=== PATIENT | female | born 1955 | race Caucasian/White ===

== ENCOUNTER 2019-08-26 12:34 | Outpatient (CLI) | payer MEDICARE, OTHER, SELFPAY ==
--- NOTE | ~2019-08-26 | XR_ITS ---
EXAMINATION: XR chest 2V DATE: 08/26/2019 13:00 INDICATION: Upper respiratory infection. TECHNIQUE: Frontal and lateral views of the chest were obtained. COMPARISON: Chest 2 views 08/15/2018, chest CT 09/08/2014 FINDINGS: The chest demonstrates clear lungs without pneumonia, pleural effusion, or pneumothorax. Th e heart size is normal. IMPRESSION: 1. No acute cardiopulmonary disease. Reviewed, dictated and finalized at location A. 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
[2019-08-26 12:50] LABS: Basophils Absolute Auto 0.04 K/mm3 (0.00-0.10); Basophils Percent Auto 0.5 % (0.0-1.0); Eosinophils Absolute Auto 0.17 K/mm3 (0.02-0.50); Eosinophils Percent Auto 2.1 % (1.0-6.0); Hematocrit 44.7 % (35.0-42.0); Hemoglobin 14.2 g/dL (11.7-13.8); Immature Granulocyte Absolute 0.03 K/mm3 (0.00-0.00); Immature Granulocyte Percent A 0.4 % (0.0-0.0); Lymphocytes Absolute Auto 2.68 K/mm3 (1.10-4.50); Lymphocytes Percent Auto 32.9 % (18.0-42.0); Mean Corpuscular HGB Conc 31.8 g/dL (32.0-36.0); Mean Corpuscular Hemoglobin 28.9 pg (27.0-31.0); Mean Corpuscular Volume 90.9 fL (78.0-102.0); Mean Platelet Volume 9.7 fl (9.2-11.8); Monocytes Absolute Auto 0.48 K/mm3 (0.10-0.90); Monocytes Percent Auto 5.9 % (2.0-11.0); Neutrophils Absolute Auto 4.7 K/mm3 (1.7-7.2); Neutrophils Percent Auto 58.2 % (50.0-70.0); Platelet Count Result 266 K/mm3 (150-420); Red Blood Count 4.92 M/mm3 (4.20-5.40); Red Cell Distribution Width 13.1 % (11.6-14.4); White Blood Count 8.1 K/mm3 (4.8-10.8)
[2019-08-26 12:51] LABS: Add Urine Microscopic? NO; Appearance Urine Clear (Clear); Bilirubin Urine Negative (Negative); Blood Urine Negative (Negative); Color Urine Yellow (Yellow); Glucose Urine UA Negative (Negative); Ketones Urine Negative (Negative); Leukocyte Esterase Ur Negative (Negative); Nitrate Urine Negative (Negative); Protein Urine Negative (Negative); Specific Grav Ur <= 1.005 (1.010-1.020); Urobilinogen Urine 0.2 mg/dL (0.2-1.0); pH Urine 6.5 (5.0-8.0)
[2019-08-26 13:05] LABS: Alanine Aminotransferase 20 U/L (14-59); Albumin Level 3.6 g/dL (3.4-5.0); Alkaline Phosphatase 101 U/L (46-116); Anion Gap 11.8 mmol/L (7-16); Aspartate Amino Transferase 15 U/L (15-37); Bilirubin,Total 0.4 mg/dL (0.00-1.00); Blood Urea Nitrogen 8 mg/dL (7-18); Calcium 9.1 mg/dL (8.5-10.1); Carbon Dioxide 30 mmol/L (21-32); Chloride 106 mmol/L (98-108); Estimated Glomerular Filt Rate > 60; Glucose 186 mg/dL (70-99); Osmolality Calculated 301 mOsm/kg (285-295); Potassium 3.8 mmol/L (3.5-5.1); Sodium 144 mmol/L (136-145); Total Protein 7.6 g/dL (6.4-8.2)
[2019-08-26 13:07] LABS: Influenza Control Valid (Valid)
[2019-08-26 15:22] LABS: Hemoglobin A1C 7.4 % (<5.7)
== END 2019-08-26 12:35 | disposition home or self-care (01) ==
LOC: CHSLAB 12:36
PROVIDERS: PCP Internal Medicine; Visit Provider Nurse Practitioner Family
DX: N39.0 Urinary tract infection, site not specified (principal); J06.9 Acute upper respiratory infection, unspecified; R73.9 Hyperglycemia, unspecified
CPT/HCPCS: 36415; 71046; 80053; 81003; 83036; 85025; 87086; 87088; 87804

== ENCOUNTER 2019-11-19 08:53 | Outpatient (CLI) | payer MEDICARE, SELFPAY ==
[2019-11-19 11:02] LABS: Alanine Aminotransferase 26 U/L (14-59); Aspartate Amino Transferase 19 U/L (15-37); Cholesterol 137 mg/dL (0-200); HDL Direct 30 mg/dL (40-60); LDL Cholesterol Calculated 74 mg/dL (<130); Triglycerides 165 mg/dL (0-150)
== END 2019-11-19 08:54 | disposition home or self-care (01) ==
LOC: CHSLAB 08:57
PROVIDERS: PCP Internal Medicine; Visit Provider Internal Medicine Cardiovascular Disease
DX: E78.5 Hyperlipidemia, unspecified (principal); Z79.899 Other long term (current) drug therapy
CPT/HCPCS: 36415; 80061; 84450; 84460

== ENCOUNTER 2019-11-28 08:01 | Outpatient (CLI) | payer MEDICARE, SELFPAY ==
[2019-11-28 08:53] LABS: Alanine Aminotransferase 21 U/L (14-59); Albumin Level 3.8 g/dL (3.4-5.0); Alkaline Phosphatase 118 U/L (46-116); Anion Gap 14.1 mmol/L (7-16); Aspartate Amino Transferase 20 U/L (15-37); Bilirubin,Total 0.5 mg/dL (0.00-1.00); Blood Urea Nitrogen 8 mg/dL (7-18); Calcium 9.5 mg/dL (8.5-10.1); Carbon Dioxide 29 mmol/L (21-32); Chloride 105 mmol/L (98-108); Cholesterol 144 mg/dL (0-200); Estimated Glomerular Filt Rate > 60; Glucose 132 mg/dL (70-99); HDL Direct 32 mg/dL (40-60); LDL Cholesterol Calculated 77 mg/dL (<130); Osmolality Calculated 298 mOsm/kg (285-295); Potassium 4.1 mmol/L (3.5-5.1); Sodium 144 mmol/L (136-145); Total Protein 7.2 g/dL (6.4-8.2); Triglycerides 173 mg/dL (0-150)
[2019-11-28 08:58] LABS: CRP < 0.2 mg/dL (0.0-0.9)
== END 2019-11-28 08:02 | disposition home or self-care (01) ==
LOC: CHSLAB 08:03
PROVIDERS: PCP Internal Medicine; Visit Provider Internal Medicine
DX: E78.5 Hyperlipidemia, unspecified (principal); E11.9 Type 2 diabetes mellitus without complications; M06.9 Rheumatoid arthritis, unspecified
CPT/HCPCS: 36415; 80053; 80061; 86140

== ENCOUNTER 2020-02-25 11:23 | Outpatient (CLI) | payer MEDICARE, OTHER, SELFPAY ==
--- NOTE | ~2020-02-25 | XR_ITS ---
XR foot LT min 3V DATE: 02/25/2020 11:46 INDICATION: Left ankle and foot pain, swelling. History of multiple fractures. TECHNIQUE: 4 views COMPARISON: None FINDINGS: Tibiotalar osteoarthritis. Ossification is noted in the region of the distal Achilles tendon. Mild plantar calcaneal enthesopath y. There is osteoarthritis at the first metatarsophalangeal joint. There are degenerative changes at the tibiotalar, tarsal and tarsometatarsal joints. No recent fracture, dislocation, periosteal reaction or bone destruction is evident. IMPRESSION: Polyarticular osteoarthritis Reviewed, dictated and finalized at location B.
--- NOTE | ~2020-02-25 | XR_ITS ---
XR ankle LT min 3V DATE: 02/25/2020 11:46 INDICATION: Medial ankle pain and swelling. History of multiple fractures. TECHNIQUE: 4 views COMPARISON: 01/09/2006 left ankle FINDINGS: There is tibiotalar osteoarthritic change. There is mild plantar calcaneal enthesopathy. There are some ossification in the region of the distal Achilles tendon. No recent fracture or dislocation of the ankle or disruption of the ankle mortise is evident. IMPRESSION: No recent fracture or dislocation Osteoarthritis at the tibiotalar joint Calcaneal enthesopathy and ossification in the region of the distal Achilles tendon Reviewed, dictated and finalized at location B. IMPRESSION: No recent fracture or dislocation Osteoarthritis at the tibiotalar joint Calcaneal enthesopathy and ossification in the region of the distal Achilles te ndon
== END 2020-02-25 11:24 | disposition home or self-care (01) ==
LOC: CHSIMG 11:25
PROVIDERS: PCP Internal Medicine; Visit Provider Internal Medicine
DX: M25.572 Pain in left ankle and joints of left foot (principal); M79.672 Pain in left foot
CPT/HCPCS: 73610; 73630

== ENCOUNTER 2020-05-06 07:43 | Outpatient (CLI) | payer MEDICARE, OTHER, SELFPAY ==
--- NOTE | ~2020-05-06 | US_ITS ---
EXAMINATION: US carotid duplex BI DATE: 05/06/2020 08:27 INDICATION: Cerebral vascular accident. TECHNIQUE: Grayscale, color Doppler, and pulsed Doppler images of the cervical carotid arteries were obtained. The degree of vessel stenosis is placed in one of the following categories: normal, <50%, 5 0-69%, >=70% but less than near-occlusion, near-occlusion, or total occlusion. Note that percent sten osis relative to normal distal artery lumen diameter is indirectly measured from velocity measurement s as described by Jamie, et al. Radiology 2003; 229:340-346. COMPARISON: None. FINDINGS: RIGHT: The right common carotid artery (CCA) peak systolic velocity (PSV) is 52 cm/s. The right internal car otid artery (ICA) PSV is 647 cm/s. The right ICA end-diastolic velocity (EDV) is 241 cm/s. The right ICA/CCA PSV ratio is 13. Grayscale and color Doppler images yield an estimate of >=50% diameter reduc tion from plaque in the ICA. There is antegrade flow in the right vertebral artery. LEFT: The left CCA PSV is 66 cm/s. The left ICA PSV is 173 cm/s. The left ICA EDV is 47 cm/s. The left ICA/ CCA PSV ratio is 2.6. Grayscale and color Doppler images yield an estimate of <50% diameter reduction from plaque in the ICA. There is antegrade flow in the left vertebral artery. IMPRESSION: 1. 50-69% stenosis in the right internal carotid artery. 2. <50% stenosis in the left internal carotid artery. Reviewed, dictated and finalized at location A.
== END 2020-05-06 07:44 | disposition home or self-care (01) ==
LOC: CHSIMG 07:44
PROVIDERS: PCP Internal Medicine; Visit Provider Internal Medicine
DX: R42 Dizziness and giddiness (principal); Z86.73 Personal history of transient ischemic attack (TIA), and cerebral infarction without residual deficits
CPT/HCPCS: 93880

== ENCOUNTER 2020-09-24 08:23 | Outpatient (CLI) | payer MEDICARE, OTHER, SELFPAY ==
--- NOTE | ~2020-09-24 | XR_ITS ---
EXAMINATION: XR sinus min 3V EXAM DATE: 09/24/2020 09:21 INDICATION: Recurrent sinus infection. TECHNIQUE: Frontal, Jarek's, Castañeda, lateral, submentovertex projections of the paranasal sinuses. C omparison is made to prior examination from 07/28/2013. FINDINGS: There is some increased density along the lateral and inferior aspects of the maxillary sin uses. No sinus air-fluid levels on the submentovertex projection. Orbits and soft tissues are unremar kable. Appearance not significantly changed compared to 2013. IMPRESSION: Probable mild to moderate bilateral maxillary mucoperiosteal thickening. Reviewed, dictated and finalized at location A. E PULLER IMPRESSION: Probable mild to moderate bilateral maxillary mucoperiosteal thick ening.
== END 2020-09-24 08:24 | disposition home or self-care (01) ==
LOC: CHSLAB 08:25
PROVIDERS: PCP Internal Medicine; Visit Provider Nurse Practitioner Family
DX: J32.9 Chronic sinusitis, unspecified (principal)
CPT/HCPCS: 70220

== ENCOUNTER 2021-02-03 14:48 | Outpatient (CLI) | payer MEDICARE, OTHER, SELFPAY ==
--- NOTE | ~2021-02-03 | CT_ITS ---
EXAMINATION: CTA chest PE protocol EXAM DATE: 02/03/2021 16:34 INDICATION: Right sided chest pain with SOB x 2days . TECHNIQUE: Spiral CTA of the chest (pulmonary arteries) was performed with 100 cc Omnipaque 350 intr avenous contrast injection. Images were acquired during the pulmonary arterial phase. Coronal maxi mum intensity projection 3D-reconstructions were created by the technologist on dedicated workstation . Axial, coronal and sagittal reformatted images were reviewed. The dose-length product (DLP) for t his examination was 506.40 mGy-cm. The exposure was tailored according to patient size (auto mA exp osure control), and iterative reconstruction (ASIR) was used as additional dose reduction technique. Comparison is made to prior examination from 2015. FINDINGS: Pulmonary arteries are well opacified and without intraluminal filling defects. There is a n aberrant right subclavian artery, which is a normal anatomic variant. Mildly enlarged right hilar l ymph node, probably unchanged and reactive. No thoracic aortic dissection. Again there are several nodules which are noncalcified measuring up to 8 there is mild to moderate emphysema. Mm in size, non calcified granulomas unchanged. There are no pleural or pericardial effusions. Tracheobronchial tr ee is patent. There is no pneumothorax. Heart normal in size. There is moderate coronary arteri al calcification, arterial sclerosis. Upper abdomen is unremarkable. There is moderate thoracic sp ondylosis without osteoblastic or osteolytic lesions identified. IMPRESSION: 1. No pulmonary emboli or acute cardiopulmonary findings. 2. Mild to moderate emphysema. 3. Noncalcified granulomata unchanged. Reviewed, dictated and finalized at location G.
[2021-02-03 15:27] LABS: Basophils Absolute Auto 0.04 K/mm3 (0.00-0.10); Basophils Percent Auto 0.5 % (0.0-1.0); Eosinophils Absolute Auto 0.18 K/mm3 (0.02-0.50); Eosinophils Percent Auto 2.1 % (1.0-6.0); Hematocrit 47.8 % (35.0-42.0); Hemoglobin 15.6 g/dL (11.7-13.8); Immature Granulocyte Absolute 0.04 K/mm3 (0.00-0.00); Immature Granulocyte Percent A 0.5 % (0.0-0.0); Lymphocytes Percent Auto 34.2 % (18.0-42.0); Mean Corpuscular HGB Conc 32.6 g/dL (32.0-36.0); Mean Corpuscular Hemoglobin 29.2 pg (27.0-31.0); Mean Corpuscular Volume 89.5 fL (78.0-102.0); Mean Platelet Volume 10.1 fl (9.2-11.8); Monocytes Absolute Auto 0.57 K/mm3 (0.10-0.90); Monocytes Percent Auto 6.5 % (2.0-11.0); Neutrophils Absolute Auto 4.9 K/mm3 (1.7-7.2); Neutrophils Percent Auto 56.2 % (50.0-70.0); Platelet Count Result 274 K/mm3 (150-420); Red Blood Count 5.34 M/mm3 (4.20-5.40); Red Cell Distribution Width 13.5 % (11.6-14.4); White Blood Count 8.8 K/mm3 (4.8-10.8)
[2021-02-03 15:28] LABS: Add Urine Microscopic? NO; Appearance Urine Clear (Clear); Bilirubin Urine Negative (Negative); Blood Urine Negative (Negative); Color Urine Light Yellow (Yellow); Glucose Urine UA Negative (Negative); Ketones Urine Negative (Negative); Leukocyte Esterase Ur Negative LEU/UL (Negative); Nitrate Urine Negative (Negative); Protein Urine Negative (Negative); Urobilinogen Urine 0.2 mg/dL (0.2-1.0); pH Urine 6.5 (5.0-8.0)
[2021-02-03 15:52] LABS: Alanine Aminotransferase 24 U/L (14-59); Albumin Level 3.8 g/dL (3.4-5.0); Alkaline Phosphatase 104 U/L (46-116); Anion Gap 11 mmol/L (8-16); Aspartate Amino Transferase 17 U/L (15-37); Bilirubin,Total 0.3 mg/dL (0.00-1.00); Blood Urea Nitrogen 10 mg/dL (7-18); CRP 0.7 mg/dL (0.0-0.9); Calcium 9.6 mg/dL (8.5-10.1); Carbon Dioxide 27 mmol/L (21-32); Chloride 108 mmol/L (98-108); Creatine Kinase 282 U/L (26-192); Estimated Glomerular Filt Rate > 60; Glucose 101 mg/dL (70-99); Osmolality Calculated 301 mOsm/kg (285-295); Potassium 3.9 mmol/L (3.5-5.1); Sodium 146 mmol/L (136-145); Total Protein 7.3 g/dL (6.4-8.2); Troponin I 9.2 ng/L (0.00-60.4)
== END 2021-02-03 14:49 | disposition home or self-care (01) ==
LOC: CHSLAB 14:50
PROVIDERS: PCP Internal Medicine; Visit Provider Nurse Practitioner Family
DX: R07.9 Chest pain, unspecified (principal)
CPT/HCPCS: 36415; 71275; 80053; 81003; 82550; 82553; 84484; 85025; 86140; Q9967

== ENCOUNTER 2021-02-05 13:18 | Emergency (ER) | payer MEDICARE, OTHER, SELFPAY ==
--- NOTE | ~2021-02-05 | CT_ITS ---
EXAMINATION: CTA chest PE protocol DATE: 02/05/2021 15:25 INDICATION: Midsternal chest pain. TECHNIQUE: Computed tomography (CT) pulmonary angiogram of the chest was performed with 100 mL Omnipa que-350 intravenous contrast. Additional 3D reconstructions utilizing coronal maximum intensity proje ction (MIP) were performed. Automated exposure control and iterative reconstruction technique were em ployed. The dose-length product was 507.95 mGy-cm. COMPARISON: CT studies dated 02/03/2021 and 09/08/2014 FINDINGS: Excellent contrast opacification of the pulmonary arteries. There is moderate streak artifact from de nse contrast in the superior vena cava and right atrium. Minimal scattered respiratory motion artifac t which does not significantly limit evaluation. No pulmonary embolism. Mild emphysema. 7 mm left low er lobe nodule, 6 mm nodule in the anterior segment right upper lobe and a couple 2-3 mm nodules in t he right lower lobe, all unchanged since 09/08/2014 consistent with noncalcified granulomata. Also unc hanged is an 8 mm intrafissural lymph node along the right minor fissure. No pneumonia, pulmonary joby ma, pleural effusion or pneumothorax. Heart size is normal. Atherosclerotic coronary artery calcifica tion. No pericardial effusion. Thoracic aorta is normal in caliber with no dissection. Anatomic varia nt retroesophageal aberrant right subclavian artery. No pathologically enlarged thoracic lymphadenopa thy. Utilized upper abdomen is unremarkable. Moderate thoracic spondylosis with bridging osteophytes at multiple levels consistent with diffuse idiopathic skeletal hyperostosis (DISH). IMPRESSION: 1. No pulmonary embolism or other acute cardiopulmonary disease. 2. Mild emphysema. Reviewed, dictated and finalized at location A.
--- NOTE | ~2021-02-05 | XR_ITS ---
EXAMINATION: XR chest 2V DATE: 02/05/2021 13:51 INDICATION: Midsternal chest pressure TECHNIQUE: PA and lateral views of the chest are obtained. COMPARISON: 08/26/[address] dated 02/03/2021 FINDINGS: The lungs are free of acute opacities. There is no pleural effusion or pneumothorax. The ca rdiomediastinal silhouette is normal. There is moderate thoracic spondylosis. IMPRESSION: 1. No acute cardiopulmonary abnormality. Reviewed, dictated and finalized at location A.
--- NOTE | 2021-02-05 13:29 | ECG_ITS ---
Measurements Intervals [place] Rate: 55 P: 59 MA: 146 QRS: -1 QRSD: 98 T: 24 QT: 414 QTc: 398 Interpretive Statements SINUS BRADYCARDIA BASELINE WANDER- I, II, III, AVR, AVL, AVF, V1-V2, V5-V6 BORDERLINE ECG Electronically Signed On 02-05-2021 20:48:13 CDT by Noman Edmondson D.O.
[2021-02-05 13:46] VITALS: BP 209/84; PULSE 54; RESP 16; TEMP 36.4; O2SAT 97
[2021-02-05 13:47] VITALS: PULSE 54
--- NOTE | 2021-02-05 13:48 | ED.CHESTPAIN ---
HPI - Chest Pain General Chief Complaint: Chest Pain Stated Complaint: tightness in chest Time Seen by Provider: 02/05/21 13:40 Source: patient Mode of arrival: ambulatory Limitations: no limitations History of Present Illness HPI narrative: Patient comes in with complaints of pain in her right shoulder, and chest pain, in the low chest / epigastric area. This has been going on for days, and is associated with some sensation she cant catch her breath, or is having difficulty breathing. This is at least causing her moderately severe discomfort, which is a dull discomfort, that has been ongoing for days. She admits having esophageal problems in the past, and evidently does not always chew food well due to poor teeth. She denies feeling something is stuck. Nothing she has done at home has helped her to feel better. MD complaint: chest heaviness and chest discomfort Onset (ago): day(s) Timing of current episode: constant and other (ongoing over days) Prior episodes: Yes Onset: during rest Pain location: epigastric and other (low sternal mostly) Pain radiation: other (some right shoulder discomfort) Severity: moderate Quality: aching, heaviness and dull (ibuprofen in excess has been taken, and has not helped much. Discomfort seems related to meals. ) Exacerbating factors: nothing Associated symptoms: dyspnea Treatment prior to arrival: other (excess ibuprofen) Risk Factors Coronary artery disease risk factors: hyperlipidemia Related Data Home Medications Medication Instructions Recorded Confirmed albuterol sulfate 2 puff INHALATION PRN 02/05/21 02/05/21 rosuvastatin 40 mg PO DAILY 02/05/21 02/05/21 Allergies Allergy/AdvReac Type Severity Reaction Status Date / Time cortisone AdvReac Unknown Verified 02/05/21 14:09 Review of Systems Constitutional: Constitutional: Reports no additional constitutional complaints Eyes: Eyes: Reports no additional eye complaints ENT: Reports system reviewed and no additional complaints, except as documented Cardiovascular: Cardiovascular: Reports no additional cardiovascular complaints Respiratory: Respiratory: Reports no additional respiratory complaints Gastrointestinal: Gastrointestinal: Reports abdominal pain Comments: history of dysphagia in past, Genitourinary: Genitourinary: Reports no additional female genitourinary complaints Musculoskeletal: Comments: right shoulder pain Integumentary/Breasts: Skin/Breast: Reports system reviewed and no additional complaints, except as docu Neurologic: Reports system reviewed and no additional complaints, except as documented Psychiatric: Psychiatric: Reports no additional psychiatric complaints Endocrine: Endocrine: Reports no additional endocrine complaints Hematologic/Lymphatic: Hematologic/Lymphatic: Reports no additional hematologic/lymphatic complaints Allergic/Immunologic: Allergic/Immunologic: Reports no additional allergic/immunologic complaints PMFSH Past Medical History Medical History (Updated 02/05/21 @ 21:49 by Jet Muniz MD) Hyperlipidemia Surgical History Surgical History (Updated 02/05/21 @ 17:00 by Jet Muniz MD) No significant past surgical history Family History Family History Other Family history non-contributory Social History Social History Smoking packs per day: 1 Smoking cigarettes per day: 20.0 Smoking status: Current every day smoker Alcohol intake: never Substance use: never Living arrangements: with family Gender identity (if verbalized by the patient): Female Sexual Orientation (if Verbalized by the Patient): Straight or Heterosexual Exam Const: General: cooperative and healthy appearing Nutritional Appearance: average body habitus and well nourished Orientation/consciousness: oriented to person, oriented to place and oriented to time JESSEMT: Dhruv
[2021-02-05] MEDS: KETOROLAC 30 MG/ML VIAL (*BKC) IV PUSH (14:02)
[2021-02-05 14:04] LABS: Basophils Absolute Auto 0.03 K/mm3 (0.00-0.10); Basophils Percent Auto 0.4 % (0.0-1.0); Eosinophils Absolute Auto 0.19 K/mm3 (0.02-0.50); Eosinophils Percent Auto 2.6 % (1.0-6.0); Hematocrit 48.2 % (35.0-42.0); Hemoglobin 15.6 g/dL (11.7-13.8); Immature Granulocyte Absolute 0.03 K/mm3 (0.00-0.00); Immature Granulocyte Percent A 0.4 % (0.0-0.0); Lymphocytes Absolute Auto 2.15 K/mm3 (1.10-4.50); Lymphocytes Percent Auto 29.8 % (18.0-42.0); Mean Corpuscular HGB Conc 32.4 g/dL (32.0-36.0); Mean Corpuscular Hemoglobin 28.9 pg (27.0-31.0); Mean Corpuscular Volume 89.4 fL (78.0-102.0); Mean Platelet Volume 10.3 fl (9.2-11.8); Monocytes Absolute Auto 0.49 K/mm3 (0.10-0.90); Monocytes Percent Auto 6.8 % (2.0-11.0); Neutrophils Absolute Auto 4.3 K/mm3 (1.7-7.2); Platelet Count Result 250 K/mm3 (150-420); Red Blood Count 5.39 M/mm3 (4.20-5.40); Red Cell Distribution Width 13.3 % (11.6-14.4); White Blood Count 7.2 K/mm3 (4.8-10.8)
--- NOTE | 2021-02-05 14:05 | PC.NURSE ---
ALLERGIES CLARIFIED WITH PT PRIOR TO ADMINISTRATION OF DEXAMETHASONE.
[2021-02-05] MEDS: DEXAMETHASONE SOD PHOS INJ 4 MG/ML VIAL 10 MG IV PUSH (14:08)
[2021-02-05 14:29] LABS: Alanine Aminotransferase 20 U/L (14-59); Albumin Level 3.8 g/dL (3.4-5.0); Alkaline Phosphatase 103 U/L (46-116); Anion Gap 10 mmol/L (8-16); Aspartate Amino Transferase 15 U/L (15-37); Bilirubin,Total 0.4 mg/dL (0.00-1.00); Blood Urea Nitrogen 10 mg/dL (7-18); Calcium 9.5 mg/dL (8.5-10.1); Carbon Dioxide 27 mmol/L (21-32); Chloride 106 mmol/L (98-108); Estimated CRCL calculation 56 ml/min; Estimated Glomerular Filt Rate > 60; Glucose 152 mg/dL (70-99); NT Pro B Type Natriuretic Pept 227 pg/mL (0-125); Osmolality Calculated 298 mOsm/kg (285-295); Potassium 4.1 mmol/L (3.5-5.1); Sodium 143 mmol/L (136-145); Total Protein 7.2 g/dL (6.4-8.2); Troponin I 8.2 ng/L (0.00-60.4)
[2021-02-05 14:36] LABS: D Dimer 0.61 mg/L (0.19-0.50)
[2021-02-05 14:45] VITALS: BP 169/60; PULSE 53; RESP 17; O2SAT 94
[2021-02-05 16:15] VITALS: BP 152/67; PULSE 50; RESP 14; O2SAT 96
--- NOTE | 2021-02-05 16:22 | PC.NURSE ---
pt ambulatory to bathroom.
[2021-02-05] MEDS: MAG HYDROX/ALUMINUM HYD/SIMETH 30 ML, PHENobarb/HYOSCY/ATROPINE/SCOP 32.4 MG, LIDOCAINE... PO (16:45)
== END 2021-02-05 16:55 | disposition home or self-care (01) ==
PROVIDERS: Emergency Provider Emergency Medicine; PCP Internal Medicine
DX: R07.89 Other chest pain (principal); M25.511 Pain in right shoulder; R06.89 Other abnormalities of breathing; E78.5 Hyperlipidemia, unspecified; F17.200 Nicotine dependence, unspecified, uncomplicated
CPT/HCPCS: 36415; 71046; 71275; 80053; 83880; 84484; 85025; 85380; 93005; 96374; 96375; 99283; 99284; A9270; J1100; J1885; Q9967

== ENCOUNTER 2021-02-08 08:27 | Outpatient (CLI) | payer MEDICARE, OTHER, SELFPAY ==
--- NOTE | ~2021-02-08 | US_ITS ---
EXAMINATION: US right upper quadrant DATE: 02/08/2021 09:00 INDICATION: Right upper quadrant pain TECHNIQUE: Multiple grayscale and Doppler ultrasound images of the abdomen were obtained. COMPARISON: None available FINDINGS: Bowel gas obscures visualization of the pancreas. The visualized portions of the pancreas a re unremarkable. The liver is normal with normal echogenicity and echotexture. No surface nodularity. Normal hepatopetal flow in the main portal vein. The gallbladder is normal with no abnormal wall thi ckening, pericholecystic fluid or stones. The normal common bile duct measures 3 mm. There was no son ographic Gross sign. IMPRESSION: 1. Normal sonographic study of the gallbladder. Reviewed, dictated and finalized at location B.
[2021-02-08 09:39] LABS: Alanine Aminotransferase 21 U/L (14-59); Aspartate Amino Transferase 10 U/L (15-37); Cholesterol 174 mg/dL (0-200); HDL Direct 41 mg/dL (40-60); LDL Cholesterol Calculated 115 mg/dL (<130); Triglycerides 91 mg/dL (0-150)
== END 2021-02-08 08:28 | disposition home or self-care (01) ==
PROVIDERS: PCP Internal Medicine
DX: R10.11 Right upper quadrant pain (principal); E78.2 Mixed hyperlipidemia; Z79.899 Other long term (current) drug therapy
CPT/HCPCS: 36415; 76705; 80061; 84450; 84460

== ENCOUNTER 2021-02-27 01:24 | Day surgery (SDC) | payer MEDICARE, OTHER, SELFPAY ==
[2021-02-14 13:59] VITALS: BMI 36.2
--- NOTE | 2021-02-24 17:35 | WPDANESEPP ---
Anes - Eval Pre Procedure Procedure: Operation Date: 02/27/21 12:30 Proposed Procedures p Esophagogastroduodenoscopy - Avelino Emerson MD Date/Time: 02/24/21 17:35 Pre Op Diagnosis: dysphagia Patient Data Age: 65 Gender: F Height: 1.55 m Weight: 87 kg Allergies Allergy/AdvReac Type Severity Reaction Status Date / Time cortisone AdvReac Unknown Verified 02/14/21 13:53 Home Medications Medication Instructions Recorded Confirmed Type albuterol sulfate 2 puff INHALATION PRN PRN 02/05/21 02/14/21 History rosuvastatin 40 mg PO DAILY 02/05/21 02/14/21 History aspirin [Adult Low Dose Aspirin] 81 mg PO DAILY 02/14/21 02/14/21 History Patient hx anesthesia problems: none Family hx anesthesia problems: none PMFSH Past Medical History Medical History (Updated 02/24/21 @ 17:36 by Keith Adrian DO) CAD (coronary artery disease) Hyperlipidemia PVD (peripheral vascular disease) right carotid stenosis 70% blockage Surgical History Surgical History (Updated 02/24/21 @ 17:36 by Keith Adrian DO) History of appendectomy History of bilateral breast reduction surgery History of coronary artery stent placement [id number] History of hysterectomy Family History Family History Other Family history non-contributory Social History Social History Smoking packs per day: 1 Smoking cigarettes per day: 20.0 Years smoked: 50 Smoking pack-years: 50.00 Smoking status: Current every day smoker Tobacco type: cigarettes Alcohol intake: never Substance use: never Living arrangements: with family Gender identity (if verbalized by the patient): Female Spiritual care concerns: No Exam Day of Procedure 02/24/21 17:35
[2021-02-27 10:56] VITALS: BP 180/97; PULSE 82; RESP 18; TEMP 36.3; O2SAT 98
[2021-02-27] MEDS: LACTATED RINGERS 1,000 ML 150 ML IV CONT (10:59)
--- NOTE | 2021-02-27 11:04 | WPDANESEFPP ---
Anes - Eval Final PreProcedure Day of Procedure 02/27/21 11:04 Patient weight: obese Heart: regular rate and rhythm Lungs: wheezes Airway: Mallampati scale Neurological: alert and oriented Last oral intake: >/= 8 hours ASA classification: III Emergent: no Anesthetic plan: proceed Anesthesia type and monitoring: general GIVS and standard monitoring Other findings: loose tooth discussed possible loss during case Informed Consent: The patient's anesthetic plan and its attendant risks and benefits were discussed with the patient/family/POA. Questions were solicited and answers provided to the satisfaction of the patient/family/POA.
--- NOTE | 2021-02-27 11:17 | PM.HPGS ---
History of Present Illness History of Present Illness Consent: Risks, benefits, and alternatives have been discussed and questions answered. Patient agrees to proceed with procedure. Chief complaint: dysphagia Narrative: Mahogany Ny is a 65 year old female With dysphagia. She states that every so often she will have a sensation that something is stuck in her lower substernal area. This will last for a couple of days and then subside. She does not actually have to leave the table because there is an impaction and she does not regurgitate food that seems to be stuck. Has been no weight loss. Review of Systems Review of Systems: All systems reviewed & are unremarkable except as noted in HPI and below PMFSH Past Medical History Medical History CAD (coronary artery disease) Hyperlipidemia PVD (peripheral vascular disease) right carotid stenosis 70% blockage Surgical History Surgical History History of appendectomy History of bilateral breast reduction surgery History of coronary artery stent placement x1, 2015 History of hysterectomy Family History Family History Other Family history non-contributory Social History Social History Smoking packs per day: 1 Smoking cigarettes per day: 20.0 Years smoked: 50 Smoking pack-years: 50.00 Smoking status: Current every day smoker Tobacco type: cigarettes Alcohol intake: never Substance use: never Living arrangements: with family Gender identity (if verbalized by the patient): Female Spiritual care concerns: No Meds Home Medications and Allergies Home Medications Medication Instructions Recorded Confirmed Type albuterol sulfate 2 puff INHALATION PRN PRN 02/05/21 02/14/21 History rosuvastatin 40 mg PO DAILY 02/05/21 02/14/21 History aspirin [Adult Low Dose Aspirin] 81 mg PO DAILY 02/14/21 02/14/21 History Allergies Allergy/AdvReac Type Severity Reaction Status Date / Time cortisone AdvReac Unknown Verified 02/27/21 10:53 Vital Signs Vital Signs - 24 hr 02/27/21 10:56 Temperature 36.3 C L Pulse Rate 82 Respiratory Rate 18 Blood Pressure 180/97 H Pulse Oximetry 98 Exam Const: General: alert Orientation/consciousness: patient oriented x3 Resp: Auscultation: clear to auscultation bilaterally Cardio: Rhythm: regular rhythm GI: GI Palp: Yes Soft to palpation and No Tenderness to palpation present (GI) Neuro: General: patient oriented x3 Assessment and Plan Assessment and plan (1) Dysphagia: Code(s): R13.10 - Dysphagia, unspecified Status: Acute Assessment and Plan: EGD with possible biopsy or dilatation or cautery.
[2021-02-27] MEDS: BENZOCAINE (*SP) 60 ML SPRAY CAN (HURRICAINE) 1 SPRAY MUCOUS MEM (11:33)
[2021-02-27 11:49] VITALS: BP 107/55; PULSE 58; RESP 28; O2SAT 100
[2021-02-27 11:59] VITALS: BP 120/60; PULSE 56; RESP 23; O2SAT 100
[2021-02-27 12:09] VITALS: BP 146/80; PULSE 54; RESP 25; O2SAT 100
== END 2021-02-27 12:21 | disposition home or self-care (01) ==
PROVIDERS: PCP Internal Medicine; Visit Provider Internal Medicine Gastroenterology
PROC: 0DJ08ZZ Inspection of Upper Intestinal Tract, Via Natural or Artificial Opening Endoscopic (ICD-10-PCS; CPT 43235; principal; 2021-02-27 12:30)
DX: R13.19 Other dysphagia (principal); K21.9 Gastro-esophageal reflux disease without esophagitis; K29.70 Gastritis, unspecified, without bleeding; I25.10 Atherosclerotic heart disease of native coronary artery without angina pectoris; E78.5 Hyperlipidemia, unspecified; I65.21 Occlusion and stenosis of right carotid artery; Z95.5 Presence of coronary angioplasty implant and graft; F17.210 Nicotine dependence, cigarettes, uncomplicated; Z79.82 Long term (current) use of aspirin; Z79.51 Long term (current) use of inhaled steroids; E66.9 Obesity, unspecified; Z68.35 Body mass index [BMI] 35.0-35.9, adult
CPT/HCPCS: 43239; 87081; 88305; J2704; J7120

== ENCOUNTER 2021-05-24 11:42 | Outpatient (CLI) | payer MEDICARE, OTHER, SELFPAY ==
--- NOTE | ~2021-05-24 | CT_ITS ---
EXAMINATION: CT brain wo con INDICATION: Right hemianesthesia and visual abnormality of the right eye COMPARISON: 09/11/2007 TECHNIQUE: Standard unenhanced head CT. The dose-length product (DLP) was 605.33 mGy-cm. The mA was a djusted according to patient size. Iterative reconstruction technique was employed. FINDINGS: There is no acute intraparenchymal hemorrhage. No evidence of mass lesion. No evidence of a cute infarction. There has been interval infarction in the right parieto-occipital lobe. There is mil d periventricular and subcortical hypodensity probably related to small vessel ischemic disease. Ther e is mild prominence of the sulci and ventricles related to cerebral atrophy. Intracranial calcified cerebral atherosclerosis is noted. There are no extra-axial collections. There is no mass effect or m idline shift. The orbits and soft tissues are unremarkable. The visualized sinuses and mastoid air ce lls are well aerated. IMPRESSION: 1. Interval right parieto-occipital infarct without acute intracranial abnormality. 2. Age related findings. Reviewed, dictated and finalized at location B. IMPRESSION: 1. Interval right parieto-occipital infarct without acute intracranial abnormal ity. 2. Age related findings.
--- NOTE | ~2021-05-24 | US_ITS ---
EXAMINATION: US venous doppler LE RT EXAM DATE: 05/24/2021 12:17 INDICATION: R Jem Anesthesia, R Leg swelling. TECHNIQUE: Multiple grayscale, color flow and Doppler images of the right lower extremity deep venous system were obtained and reviewed. There is no prior study for comparison. FINDINGS: The right common femoral, femoral and profunda veins demonstrate normal color flow, respira tory variation, augmentation and compressibility. Compressibility, color flow confirmed within the r ight popliteal, posterior tibial, peroneal, and greater saphenous veins. IMPRESSION: No right lower extremity deep venous thrombosis. Reviewed, dictated and finalized at location A.
[2021-05-24 11:59] LABS: Basophils Absolute Auto 0.04 K/mm3 (0.00-0.10); Basophils Percent Auto 0.5 % (0.0-1.0); Eosinophils Absolute Auto 0.19 K/mm3 (0.02-0.50); Eosinophils Percent Auto 2.5 % (1.0-6.0); Hematocrit 48.2 % (35.0-42.0); Hemoglobin 15.5 g/dL (11.7-13.8); Immature Granulocyte Absolute 0.02 K/mm3 (0.00-0.00); Immature Granulocyte Percent A 0.3 % (0.0-0.0); Lymphocytes Absolute Auto 2.78 K/mm3 (1.10-4.50); Lymphocytes Percent Auto 36.3 % (18.0-42.0); Mean Corpuscular HGB Conc 32.2 g/dL (32.0-36.0); Mean Corpuscular Hemoglobin 29.4 pg (27.0-31.0); Mean Corpuscular Volume 91.5 fL (78.0-102.0); Mean Platelet Volume 9.5 fl (9.2-11.8); Monocytes Absolute Auto 0.63 K/mm3 (0.10-0.90); Monocytes Percent Auto 8.2 % (2.0-11.0); Neutrophils Percent Auto 52.2 % (50.0-70.0); Platelet Count Result 253 K/mm3 (150-420); Red Blood Count 5.27 M/mm3 (4.20-5.40); Red Cell Distribution Width 13.4 % (11.6-14.4); White Blood Count 7.7 K/mm3 (4.8-10.8)
[2021-05-24 12:18] LABS: D Dimer 0.93 mg/L (0.19-0.50)
[2021-05-24 12:20] LABS: Alanine Aminotransferase 24 U/L (14-59); Albumin Level 3.8 g/dL (3.4-5.0); Alkaline Phosphatase 123 U/L (46-116); Anion Gap 10 mmol/L (8-16); Aspartate Amino Transferase 12 U/L (15-37); Bilirubin,Total 0.6 mg/dL (0.00-1.00); Blood Urea Nitrogen 7 mg/dL (7-18); Carbon Dioxide 28 mmol/L (21-32); Chloride 105 mmol/L (98-108); Estimated Glomerular Filt Rate > 60; Glucose 120 mg/dL (70-99); Osmolality Calculated 295 mOsm/kg (285-295); Potassium 3.7 mmol/L (3.5-5.1); Sodium 143 mmol/L (136-145); Total Protein 7.7 g/dL (6.4-8.2)
[2021-05-24 12:47] LABS: Appearance Urine Clear (Clear); Color Urine Yellow (Yellow); Protein Urine Negative (Negative)
[2021-05-24 12:48] LABS: Add Urine Microscopic? NO; Bilirubin Urine Negative (Negative); Blood Urine Negative (Negative); Glucose Urine UA Negative (Negative); Ketones Urine Negative (Negative); Leukocyte Esterase Ur Negative (Negative); Nitrate Urine Negative (Negative); Urobilinogen Urine 0.2 mg/dL (0.2-1.0)
== END 2021-05-24 11:43 | disposition home or self-care (01) ==
LOC: CHSLAB 11:44
PROVIDERS: PCP Internal Medicine; Visit Provider Internal Medicine
DX: M79.89 Other specified soft tissue disorders (principal); R20.0 Anesthesia of skin
CPT/HCPCS: 36415; 70450; 80053; 81003; 85025; 85380; 93971

== ENCOUNTER 2021-08-04 10:58 | Outpatient (CLI) | payer MEDICARE, SELFPAY ==
[2021-08-04 11:49] LABS: Influenza Control Valid (Valid); SARS-CoV-2 Ag Negative (Negative)
[2021-08-05 23:20] LABS: SARS-CoV-2 RNA PCR Positive
== END 2021-08-04 10:59 | disposition home or self-care (01) ==
LOC: CHSLAB 11:01
PROVIDERS: PCP Internal Medicine; Visit Provider Internal Medicine
DX: J06.9 Acute upper respiratory infection, unspecified (principal); Z20.822 Contact with and (suspected) exposure to COVID-19
CPT/HCPCS: 87426; 87804; C9803; U0003; U0005

== ENCOUNTER 2021-09-27 08:54 | Outpatient (CLI) | payer MEDICARE, OTHER, SELFPAY ==
[2021-09-27 09:30] VITALS: PULSE 61; O2SAT 95
[2021-09-27 09:35] VITALS: PULSE 78; O2SAT 86
[2021-09-27 09:40] VITALS: PULSE 80; O2SAT 88
[2021-09-27 09:45] VITALS: PULSE 82; O2SAT 90
[2021-09-27 09:55] VITALS: PULSE 64; O2SAT 95
--- NOTE | 2021-09-27 10:23 | HOMEO2EVAL ---
Evaluation was performed at [facility] Home Oxygen Evaluation RC: Home Oxygen (O2) Evaluation Start: 09/27/21 10:21 Freq: Status: Active Protocol: RPE Activity Type Activity Date Activity User E-Sign Co-Sign Detail Recorded Client Recorded Date Recorded By Document 09/27/21 09:30 [email or web address] [email or web address] 09/27/21 10:23 DJO Document 09/27/21 09:35 [email or web address] [email or web address] 09/27/21 10:23 DJO Document 09/27/21 09:40 [email or web address] [email or web address] 09/27/21 10:23 DJO Document 09/27/21 09:45 [email or web address] [email or web address] 09/27/21 10:23 DJO Document 09/27/21 09:55 [email or web address] [email or web address] 09/27/21 10:23 DJO 09/27/21 09/27/21 09/27/21 09:30 09:35 09:40 Home O2 Evaluation Test Phase Resting Exercise Exercise Oxygen Delivery Room Air Room Air Nasal Cannula Oxygen Flow Rate (L/min) 1 Pulse Oximetry (90-100 %) 95 86 L 88 L Pulse Rate (60-100 beats/min) 61 78 80 Activity Tolerance Ambulation Distance (feet) Ambulation Distance (meters) Treatment Charges O2 Evaluation - Outpatient 09/27/21 09/27/21 09:45 09:55 Home O2 Evaluation Test Phase Exercise Resting Oxygen Delivery Nasal Cannula Room Air Oxygen Flow Rate (L/min) 2 Pulse Oximetry (90-100 %) 90 95 Pulse Rate (60-100 beats/min) 82 64 Activity Tolerance Good Ambulation Distance (feet) 500 Ambulation Distance (meters) 152.39 Treatment Charges
--- NOTE | 2021-09-27 12:43 | WPDPFTINT ---
PFT Procedure Performed PFT Procedure Performed Spirometry with Pre/Post Bronchodilator Plethysmography (Lung Vol) Diffusing Cap (DLCO) Flow Vol Loop PFT Interpretation Lung volumes were measured with the body plethysmography method. The diminished lung volumes are indicative of restrictive respiratory disease. Spirometry showed diminished expiratory flow rates and a normal FEV1 to FVC ratio 74%, also consistent with restrictive respiratory disease. Following administration of a bronchodilator there was no significant change in the expiratory flow rates. Lung diffusion capacity is moderately reduced at 49% predicted. Impression: Mild restrictive respiratory disease. Moderately reduced lung diffusion capacity.
== END 2021-09-27 08:55 | disposition home or self-care (01) ==
PROVIDERS: PCP Internal Medicine; Visit Provider Internal Medicine Pulmonary Disease
DX: J43.9 Emphysema, unspecified (principal); Z87.891 Personal history of nicotine dependence; R94.2 Abnormal results of pulmonary function studies
CPT/HCPCS: 94060; 94618; 94726; 94729

== ENCOUNTER 2021-10-23 08:36 | Outpatient (RCR) | payer MEDICARE, OTHER, SELFPAY ==
--- NOTE | 2021-10-23 08:16 | PTOPEVAL ---
Thank you for referring [facility]og[facility] to [facility] The patient is scheduled to be seen for therapy? ____x/week for ___ weeks. Please review, sign, date and return this plan of care ZACK. I agree with and certify that the following plan of care is medically necessary. 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% Hx Coronary Stent Yes: X1; placed 2015 Hx Hypercholesterolemia Yes Respiratory History Hx Respiratory Disorders No Significant History Gastrointestinal History Hx Appendectomy Yes Genitourinary History Hx Genitourinary Disorders No Significant History Musculoskeletal History Hx Orthopedic Surgery Yes: Right wrist tendon release; L LE fx repair Hematological History Hx Hematological Disorders No Significant History Endocrine History Hx Endocrine Disorders No Significant History HEENT History Hx HEENT Disorders No Significant History Integumentary History Hx Shingles Yes Reproductive History Hx Post Menopausal Yes Hx Other Reproductive Disorders Yes: Breast reduction 1997 Psychosocial History Hx Psychiatric Disorders No Significant History Pain History History of Any Previous or Ongoing No Significant History Instance of Pain Anesthesia History Hx Anesthesia Reactions No Significant History Evaluation Information Problem Diagnosis R arm pain and weakness Onset 10/20/21 Additional Evaluation Detail quick dash = 22% functionally declined Subjective Information patient reports she has Query Text:As Reported By Patient/ tingling from her forearms Family down to her fingers 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 she reports she also has symptoms in the R shoulder blade that is a combination of itching and tingling. 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 she reports she has had an mri of the spin
--- NOTE | 2021-11-06 07:59 | PTOPEVAL ---
Thank you for referring Mahogany Ny to [facility].? The patient is scheduled to be seen for therapy? ____x/week for ___ weeks. Please review, sign, date and return this plan of care ZACK. I agree with and certify that the following plan of care is medically necessary. Referring Physician Date Admitting Provider: Attending Provider: Rolo Abebe MD Referring Provider: *PT Outpatient Evaluation Start: 10/23/21 07:07 Freq: Status: Active Protocol: Document 11/06/21 07:02 [facility] (Rec: 11/06/21 07:58 [facility] [id number]) Therapy Assessment Status Assessment Status Assessment Status Progress Outpatient Past Medical History Neurological History Hx Neurological Disorders No Significant History Cardiovascular History Hx Coronary Artery Disease Yes: Blocked right carotid artery 70% Hx Coronary Stent Yes: X1; placed 2015 Hx Hypercholesterolemia Yes Respiratory History Hx Respiratory Disorders No Significant History Gastrointestinal History Hx Appendectomy Yes Genitourinary History Hx Genitourinary Disorders No Significant History Musculoskeletal History Hx Orthopedic Surgery Yes: Right wrist tendon release; L LE fx repair Hematological History Hx Hematological Disorders No Significant History Endocrine History Hx Endocrine Disorders No Significant History HEENT History Hx HEENT Disorders No Significant History Integumentary History Hx Shingles Yes Reproductive History Hx Post Menopausal Yes Hx Other Reproductive Disorders Yes: Breast reduction 1997 Psychosocial History Hx Psychiatric Disorders No Significant History Pain History History of Any Previous or Ongoing No Significant History Instance of Pain Anesthesia History Hx Anesthesia Reactions No Significant History Evaluation Information Problem Diagnosis R arm pain and weakness Onset 10/20/21 Subjective Information patient reports she continues Query Text:As Reported By Patient/ to have symptoms from the neck Family down to the arms and into the hands. she reports the tingling is a bit better on the L side, but continues on the R. she reports she does feel like she has improved with skilled PT. Pain Assessment Timing of Pain Assessment Timing of Pain Assessment Assessment Pain Scale Pain Scale Used Numeric (1 - 10) Self Report Pain Assessment Bilateral Arm(s) Reported Pain Level 7 Pain Score Pain Score 7: Self Re
== END 2021-11-17 14:06 | disposition home or self-care (01) ==
LOC: CHSPT 08:36
PROVIDERS: PCP Internal Medicine; Visit Provider Internal Medicine
DX: M79.601 Pain in right arm (principal); R53.1 Weakness
CPT/HCPCS: 97014; 97110; 97140; 97162; G0283

== ENCOUNTER 2022-10-12 07:52 | Outpatient (CLI) | payer MEDICARE, SELFPAY ==
[2022-10-12 08:04] LABS: Appearance Urine Clear (Clear); Bilirubin Urine Negative (Negative); Blood Urine Negative (Negative); Color Urine Light Yellow (Yellow); Glucose Urine UA Negative (Negative); Ketones Urine Negative (Negative); Leukocyte Esterase Ur Negative (Negative); Nitrate Urine Negative (Negative); Protein Urine Negative (Negative); Specific Grav Ur <= 1.005 (1.010-1.020); Urobilinogen Urine 0.2 mg/dL (0.2-1.0)
[2022-10-12 08:05] LABS: Add Urine Microscopic? NO
[2022-10-12 08:10] LABS: Basophils Absolute Auto 0.03 K/mm3 (0.00-0.10); Basophils Percent Auto 0.5 % (0.0-1.0); Eosinophils Absolute Auto 0.17 K/mm3 (0.02-0.50); Eosinophils Percent Auto 2.8 % (1.0-6.0); Hematocrit 48.4 % (35.0-42.0); Hemoglobin 15.4 g/dL (11.7-13.8); Immature Granulocyte Absolute 0.01 K/mm3 (0.00-0.00); Immature Granulocyte Percent A 0.2 % (0.0-0.0); Lymphocytes Absolute Auto 2.56 K/mm3 (1.10-4.50); Mean Corpuscular HGB Conc 31.8 g/dL (32.0-36.0); Mean Corpuscular Hemoglobin 28.8 pg (27.0-31.0); Mean Corpuscular Volume 90.5 fL (78.0-102.0); Mean Platelet Volume 9.7 fl (9.2-11.8); Monocytes Absolute Auto 0.36 K/mm3 (0.10-0.90); Monocytes Percent Auto 5.9 % (2.0-11.0); Neutrophils Percent Auto 48.6 % (50.0-70.0); Platelet Count Result 224 K/mm3 (150-420); Red Blood Count 5.35 M/mm3 (4.20-5.40); Red Cell Distribution Width 13.2 % (11.6-14.4); White Blood Count 6.1 K/mm3 (4.8-10.8)
[2022-10-12 08:18] LABS: Hemoglobin A1C 7.8 % (<5.7)
[2022-10-12 09:15] LABS: Alanine Aminotransferase 21 U/L (14-59); Albumin Level 3.7 g/dL (3.4-5.0); Alkaline Phosphatase 142 U/L (46-116); Anion Gap 5 mmol/L (8-16); Aspartate Amino Transferase 17 U/L (15-37); Bilirubin,Total 0.5 mg/dL (0.00-1.00); Blood Urea Nitrogen 10 mg/dL (7-18); Calcium 9.3 mg/dL (8.5-10.1); Carbon Dioxide 33 mmol/L (21-32); Chloride 106 mmol/L (98-108); Cholesterol 151 mg/dL (0-200); Estimated Glomerular Filt Rate > 60; Free T4 Free Thyroxine 0.77 ng/dL (0.76-1.46); Glucose 126 mg/dL (70-99); HDL Direct 37 mg/dL (40-60); LDL Cholesterol Calculated 89 mg/dL (<130); Osmolality Calculated 299 mOsm/kg (285-295); Potassium 4.1 mmol/L (3.5-5.1); Sodium 144 mmol/L (136-145); Thyroid Stimulating Hormone 1.36 uIU/mL (0.36-3.74); Triglycerides 124 mg/dL (0-150)
[2022-10-12 09:17] LABS: CRP < 0.5 mg/dL (0.0-0.9)
== END 2022-10-12 07:53 | disposition home or self-care (01) ==
LOC: CHSLAB 07:54
PROVIDERS: PCP Internal Medicine; Visit Provider Nurse Practitioner Family
DX: E78.5 Hyperlipidemia, unspecified (principal); F17.200 Nicotine dependence, unspecified, uncomplicated; R73.9 Hyperglycemia, unspecified; M06.9 Rheumatoid arthritis, unspecified; R82.90 Unspecified abnormal findings in urine
CPT/HCPCS: 36415; 80053; 80061; 81003; 83036; 84439; 84443; 85025; 86140; 87086

== ENCOUNTER 2022-10-26 09:50 | Outpatient (CLI) | payer MEDICARE, OTHER, SELFPAY ==
--- NOTE | ~2022-10-26 | XR_ITS ---
EXAMINATION: XR lumbar spine 2-3V DATE: 10/26/2022 10:13 INDICATION: Low back pain TECHNIQUE: Anteroposterior and lateral views of the lumbar spine, and cone-down lateral view of the l umbosacral junction were obtained. COMPARISON: 03/19/2011 FINDINGS: There are 5 mm of anterolisthesis of L4 on L5. The vertebral body heights are maintained. T here is no fracture. There is mild loss of intervertebral disc space height throughout the lumbar spi ne. Small degenerative osteophytes project from the anterior endplates of multiple vertebral bodies. There is moderate facet joint osteoarthritis of the lower lumbar spine. Calcified atherosclerosis is noted. IMPRESSION: 1. Mild to moderate lumbar spondylosis without acute findings. Reviewed, dictated and finalized at location B.
--- NOTE | ~2022-10-26 | XR_ITS ---
EXAMINATION: XR hip RT min 2V DATE: 10/26/2022 10:13 INDICATION: Right hip pain TECHNIQUE: Two views of right hip were obtained. COMPARISON: None. FINDINGS: Bone alignment is normal. There is no fracture. There is mild osteoarthritis of the hip. Th e soft tissues are unremarkable. IMPRESSION: 1. Mild osteoarthritis of the hip. Reviewed, dictated and finalized at location B.
== END 2022-10-26 09:51 | disposition home or self-care (01) ==
PROVIDERS: PCP Internal Medicine; Visit Provider Internal Medicine
DX: M54.50 Low back pain, unspecified (principal); M25.551 Pain in right hip; M16.11 Unilateral primary osteoarthritis, right hip; M43.06 Spondylolysis, lumbar region
CPT/HCPCS: 72100; 73502

== ENCOUNTER 2022-10-30 07:47 | Outpatient (RCR) | payer MEDICARE, OTHER, SELFPAY ==
--- NOTE | 2022-10-30 10:13 | PTOPEVAL1 ---
Assessment and note entered by Missy Ortiz DPT Evaluation Information Assessment Status Evaluation Diagnosis R sided low back pain, hip pain Onset 10/29/22 Subjective Information Patient reports R sided low back pain has been present for about 5 years but reports the last year pain has increased. She reports pain radiate to R hip and down to the rodriguez but the radiating pain comes and goes. She reports aboout 1.5 years ago she had a blockage at the carotid artery and had stroke like symptoms with R sided weakness. She reports her most difficulty tasks at this time is walking. Prior she reports she walked prolonged periods. She is now retired Reported Pain Level Pain Score 6,2: Self Report Assessment PT Clinical Summary Patient is a 67 year old female who presents to PT with R sided low back and hip pain. She demonstrates decreased R LE strength, decreased R LE flexibility and impaired posture impairing her ability to walking prolonged distances and complete house hold tasks. She would benefit from skilled PT to address impairments and return to PLOF. Plan of Care Interventions Electrical Stimulation,Gait Training,Hot Pack/Cold Pack,Manual Therapy,Mechanical Traction,Neuro Re- education,Patient/Caregiver Educati,Therapeutic Activities,Therapeutic Exercise PT Services Indicated Yes Treatment Frequency and 2x weekly for 12 visits Duration These treatments will address the objective and functional deficits as defined above. The patient will be advanced safely and appropriately in order for the patient to progress towards his/her prior level of function. Additional exercises will be introduced and as well as a comprehensive home exercise program upon discharge, if needed, ?to ensure carryover of functional gains achieved in the clinic. This treatment plan has been reviewed and agreement upon by the patient.
--- NOTE | 2022-11-21 08:02 | PTOPPROG ---
Assessment and note entered by JT File, PT Evaluation Information Assessment Status Progress Diagnosis R sided low back pain, hip pain Onset 10/29/22 Subjective Information patient reports she has been off of therapy for a few weeks due to and injury to the R knee. she reports she caught it on a rug and it buckled on her. she did not fall, but reports the knee buckled backwards on her. she reports it has been hurting still since, and is swollen still. as far as the back goes, she reports she still has pain. she reports she has an MRI scheduled in a week on her neck. she reports she has increased in the lower back with being in any position for a prolonged time. she reports standing and bent over are especially painful. Assessment PT Clinical Summary mrs. wild has not been to therapy in a bout 2- 3 weeks. she had an injury to the R knee and had to take off due to pain. she continues to present with R hip and lower back pain, R ITB/greater trochanter pain, and now R knee pain and abnormal gait mechanics. she would benefit from skilled PT to address her R hip and lower back issues defined in her initial evaluation, and to address stability of the R knee to improve closed chain activity performance. Plan of Care Interventions Gait Training,Hot Pack/Cold Pack,Manual Therapy, Mechanical Traction,Neuro Re-education,Patient/ Caregiver Educati,Therapeutic Activities, Therapeutic Exercise PT Services Indicated Yes Treatment Frequency and continue skilled PT 2x weekly for 9 more visits Duration per her initial evaulation These treatments will address the objective and functional deficits as defined above. The patient will be advanced safely and appropriately in order for the patient to progress towards his/her prior level of function. Additional exercises will be introduced and as well as a comprehensive home exercise program upon discharge, if needed, ?to ensure carryover of functional gains achieved in the clinic. This treatment plan has been reviewed and agreement upon by the patient.
--- NOTE | 2022-12-13 07:57 | PTOPPROG ---
Assessment and note entered by JT File, PT Evaluation Information Assessment Status Progress Diagnosis R sided low back pain, hip pain Onset 10/29/22 Subjective Information patient reports she woke up late today and is slow moving. however, she continues to have pain in the R knee and R hip/lower back. she reports she continues to have increased pain with walking and standing. Assessment PT Clinical Summary mrs. wild presents to skilled PT for her 10th skilled therapy visit. she continues to present with pain in the R hip, R knee, and R lower back. she continues to have increased pain with increased activities, especially on the knee and hip. she has met only her goal for HEP thus far. she is limited in progess on all other goals. she will hold continued PT until ater MRI and follow up with her PCP. Plan of Care Interventions Gait Training,Hot Pack/Cold Pack,Manual Therapy, Mechanical Traction,Neuro Re-education,Patient/ Caregiver Educati,Therapeutic Activities, Therapeutic Exercise PT Services Indicated Yes Treatment Frequency and hold therapy until MRI and follow up with PCP Duration These treatments will address the objective and functional deficits as defined above. The patient will be advanced safely and appropriately in order for the patient to progress towards his/her prior level of function. Additional exercises will be introduced and as well as a comprehensive home exercise program upon discharge, if needed, ?to ensure carryover of functional gains achieved in the clinic. This treatment plan has been reviewed and agreement upon by the patient.
== END 2022-12-13 16:08 | disposition home or self-care (01) ==
LOC: CHSPT 07:47
PROVIDERS: PCP Internal Medicine; Visit Provider Internal Medicine
DX: M54.50 Low back pain, unspecified (principal); M25.551 Pain in right hip
CPT/HCPCS: 97014; 97110; 97112; 97140; 97161; G0283

== ENCOUNTER 2022-12-05 08:11 | Outpatient (CLI) | payer MEDICARE, SELFPAY ==
[2022-12-05 09:12] LABS: Cholesterol 153 mg/dL (0-200); HDL Direct 42 mg/dL (40-60); LDL Cholesterol Calculated 87 mg/dL (<130); Triglycerides 118 mg/dL (0-150)
== END 2022-12-05 08:12 | disposition home or self-care (01) ==
LOC: CHSLAB 08:14
PROVIDERS: PCP Internal Medicine
DX: E78.2 Mixed hyperlipidemia (principal)
CPT/HCPCS: 36415; 80061

== ENCOUNTER 2023-01-24 07:42 | Outpatient (RCR) | payer MEDICARE, OTHER, SELFPAY ==
--- NOTE | 2023-01-24 08:50 | OPREHPOC ---
Outpatient Therapy Plan of Care This is a Multidisciplinary Plan of Care that may contain components documented by all disciplines (PT, OT, and ST.) PT Problem 1 PT Problem #1 Knowledge Deficit PT Goal 1 Goal Patient to demonstrate independence with HEP Target Visit 10 PT Problem 2 PT Problem #2 Pain PT Goal 1 Goal Patient to demonstrate highest pain at 2/10 to return to house hold cleaning at PLOF Target Visit 10 PT Problem 3 PT Problem #3 Impaired Range of Motion PT Goal 1 Goal Patient to demonstrate R knee AROM 0-120 deg to return to stair navigation at PLOF Target Visit 10 PT Problem 4 PT Problem #4 Impaired Functional Mobil PT Goal 1 Goal 1. Patient to improve R knee strength to 5/5 to improve ability to complete heavy house hold tasks 2. Patient to report ability to do yard work with no increase in pain 3. Patient to improve LEFS scoring by 20% Target Visit 10
--- NOTE | 2023-01-24 08:51 | PTOPEVAL1 ---
Assessment and note entered by Missy Ortiz DPT Evaluation Information Assessment Status Evaluation Diagnosis R knee pain Onset 01/14/23 Subjective Information Patient reports she slipped on a rug outside of her camper on 11/07/22. She reports she has been to PT once before with no improvements. She reports since then she had an MRI that showed a torn meniscus. About 1.5 weeks ago she got a cortisone injection and fluid drained that helped for a few days. She reports since injury pain has remained about the same. She reports difficulty with walking on uneven ground, getting up out of a chair and navigating stairs. Patient reports pain in the medial R knee and hamstring. Reported Pain Level Pain Score 3: Self Report Assessment PT Clinical Summary Patient is a 67 year old female who presents to PT with R knee pain and torn meniscus. Patient demonstrates decreased R knee ROM, decreased R knee strength and tenderness at medial joint line impairing her ability to walk on uneven ground, navigate stairs and complete house hold chores. She would benefit from skilled PT to address impairment and return to [facility]. Plan of Care Interventions Electrical Stimulation,Gait Training,Hot Pack/Cold Pack,Manual Therapy,Neuro Re-education,Patient/ Caregiver Educati,Therapeutic Activities, Therapeutic Exercise PT Services Indicated Yes Treatment Frequency and 2x weekly for 10 visits Duration These treatments will address the objective and functional deficits as defined above. The patient will be advanced safely and appropriately in order for the patient to progress towards his/her prior level of function. Additional exercises will be introduced and as well as a comprehensive home exercise program upon discharge, if needed, ?to ensure carryover of functional gains achieved in the clinic. This treatment plan has been reviewed and agreement upon by the patient.
--- NOTE | 2023-02-25 08:23 | OPREHPOC ---
Outpatient Therapy Plan of Care This is a Multidisciplinary Plan of Care that may contain components documented by all disciplines (PT, OT, and ST.) PT Problem 1 PT Problem #1 Knowledge Deficit PT Goal 1 Goal Patient to demonstrate independence with HEP Target Visit 10 Progress Met PT Problem 2 PT Problem #2 Pain PT Goal 1 Goal Patient to demonstrate highest pain at 2/10 to return to house hold cleaning at PLOF Target Visit 14 Comment continue PT Problem 3 PT Problem #3 Impaired Range of Motion PT Goal 1 Goal Patient to demonstrate R knee AROM 0-120 deg to return to stair navigation at PLOF Target Visit 14 Comment good progress, continue PT Problem 4 PT Problem #4 Impaired Functional Mobil PT Goal 1 Goal 1. Patient to improve R knee strength to 5/5 to improve ability to complete heavy house hold tasks 2. Patient to report ability to do yard work with no increase in pain 3. Patient to improve LEFS scoring by 20% Target Visit 14 Comment progressing, continue
--- NOTE | 2023-02-25 08:24 | PTOPEVAL1 ---
Assessment and note entered by Missy Ortiz DPT Evaluation Information Assessment Status Re-evaluation Diagnosis R knee pain Onset 01/14/23 Subjective Information Patient reports she was feeling really good until Saturday when she had a CT scan with contrast. She reports since then her knee has been bothering her more. She reports she has not difficulty getting out of a chair. She does report she is able to walk in the yard but does so with caution. She reports continued difficulty with stair navigation . Reported Pain Level Pain Score 6: Self Report Assessment PT Clinical Summary Patient has been seen for 10 visits of skilled PT. Patient is progressing well towards goals with goal for HEP met. She demonstrates improved R knee ROM and strength as well as improved ability to get up from chair and walk on uneven ground. She continues to have difficulty with stair navigation and would benefit fromc continued skilled PT to address impairments and return to PLOF. Plan of Care Interventions Electrical Stimulation,Gait Training,Hot Pack/Cold Pack,Manual Therapy,Neuro Re-education,Patient/ Caregiver Educati,Therapeutic Activities, Therapeutic Exercise PT Services Indicated Yes Treatment Frequency and continue 2x weekly for 4 visits Duration These treatments will address the objective and functional deficits as defined above. The patient will be advanced safely and appropriately in order for the patient to progress towards his/her prior level of function. Additional exercises will be introduced and as well as a comprehensive home exercise program upon discharge, if needed, ?to ensure carryover of functional gains achieved in the clinic. This treatment plan has been reviewed and agreement upon by the patient.
--- NOTE | 2023-03-11 07:52 | OPREHPOC ---
Outpatient Therapy Plan of Care This is a Multidisciplinary Plan of Care that may contain components documented by all disciplines (PT, OT, and ST.) PT Problem 1 PT Problem #1 Knowledge Deficit PT Goal 1 Goal Patient to demonstrate independence with HEP Target Visit 10 Progress Met PT Problem 2 PT Problem #2 Pain PT Goal 1 Goal Patient to demonstrate highest pain at 2/10 to return to house hold cleaning at PLOF Target Visit 14 Progress Not Met Comment continue PT Problem 3 PT Problem #3 Impaired Range of Motion PT Goal 1 Goal Patient to demonstrate R knee AROM 0-120 deg to return to stair navigation at PLOF Target Visit 14 Progress Met Comment good progress, continue PT Problem 4 PT Problem #4 Impaired Functional Mobil PT Goal 1 Goal 1. Patient to improve R knee strength to 5/5 to improve ability to complete heavy house hold tasks 2. Patient to report ability to do yard work with no increase in pain 3. Patient to improve LEFS scoring by 20% Target Visit 14 Progress Met Comment progressing, continue
--- NOTE | 2023-03-11 07:52 | PTOPDC ---
Assessment and note entered by Missy Ortiz DPT Evaluation Information Assessment Status Discharge Diagnosis R knee pain Onset 01/14/23 Subjective Information Patient reports that discomfort that occured after CT has resolved. She reports she has had an improvement in stair navigation. She reports occasional pain with changing directions but that is rare. She reports independence with HEP. Reported Pain Level Pain Score 3: Self Report Assessment PT Clinical Summary Patient was seen for 14 visits of skilled PT. Patient met all goals besides pain as pain has been present with quick change in direction. Patient reports ability to navigate stairs, get up from chair and complete yard work. Patient is independent with HEP and will be discharged at this time. Plan of Care PT Services Indicated No
== END 2023-03-11 09:17 | disposition home or self-care (01) ==
LOC: CHSPT 07:42
PROVIDERS: Visit Provider Nurse Practitioner Family
DX: M70.61 Trochanteric bursitis, right hip (principal)
CPT/HCPCS: 97014; 97110; 97161; 97530; G0283

== ENCOUNTER 2023-03-11 07:54 | Outpatient (CLI) | payer MEDICARE, SELFPAY ==
[2023-03-11 08:44] LABS: Basophils Absolute Auto 0.04 K/mm3 (0.00-0.10); Basophils Percent Auto 0.6 % (0.0-1.0); Eosinophils Absolute Auto 0.09 K/mm3 (0.02-0.50); Eosinophils Percent Auto 1.4 % (1.0-6.0); Hematocrit 46.7 % (35.0-42.0); Hemoglobin 14.9 g/dL (11.7-13.8); Immature Granulocyte Absolute 0.02 K/mm3 (0.00-0.00); Immature Granulocyte Percent A 0.3 % (0.0-0.0); Lymphocytes Absolute Auto 1.99 K/mm3 (1.10-4.50); Mean Corpuscular HGB Conc 31.9 g/dL (32.0-36.0); Mean Corpuscular Hemoglobin 29.6 pg (27.0-31.0); Mean Corpuscular Volume 92.7 fL (78.0-102.0); Mean Platelet Volume 10.7 fl (9.2-11.8); Monocytes Percent Auto 7.5 % (2.0-11.0); Neutrophils Percent Auto 60.2 % (50.0-70.0); Platelet Count Result 211 K/mm3 (150-420); Red Blood Count 5.04 M/mm3 (4.20-5.40); Red Cell Distribution Width 14.3 % (11.6-14.4); White Blood Count 6.6 K/mm3 (4.8-10.8)
[2023-03-11 09:11] LABS: Alanine Aminotransferase 20 U/L (14-59); Albumin Level 3.6 g/dL (3.4-5.0); Alkaline Phosphatase 95 U/L (46-116); Anion Gap 6 mmol/L (8-16); Bilirubin,Total 0.5 mg/dL (0.00-1.00); Blood Urea Nitrogen 13 mg/dL (7-18); Calcium 9.3 mg/dL (8.5-10.1); Carbon Dioxide 30 mmol/L (21-32); Chloride 107 mmol/L (98-108); Estimated Glomerular Filt Rate > 60; Glucose 141 mg/dL (70-99); HDL Direct 46 mg/dL (40-60); Osmolality Calculated 298 mOsm/kg (285-295); Potassium 4.4 mmol/L (3.5-5.1); Sodium 143 mmol/L (136-145); Total Protein 6.7 g/dL (6.4-8.2); Triglycerides 51 mg/dL (0-150)
[2023-03-11 09:15] LABS: Hemoglobin A1C 7.4 % (<5.7)
[2023-03-11 09:23] LABS: Aspartate Amino Transferase 15 U/L (15-37); Cholesterol 137 mg/dL (0-200); LDL Cholesterol Calculated 81 mg/dL (<130)
[2023-03-11 09:33] LABS: CRP < 0.5 mg/dL (0.0-0.9)
[2023-03-14 05:22] LABS: CA 19-9 18 U/mL (<34); Carcinoembryonic Antigen <2.0 ng/mL (<2.5)
== END 2023-03-11 07:55 | disposition home or self-care (01) ==
LOC: CHSLAB 08:00
PROVIDERS: PCP Internal Medicine
DX: K86.89 Other specified diseases of pancreas (principal); E11.9 Type 2 diabetes mellitus without complications; I25.10 Atherosclerotic heart disease of native coronary artery without angina pectoris; E78.2 Mixed hyperlipidemia; R97.8 Other abnormal tumor markers
CPT/HCPCS: 36415; 80053; 80061; 82378; 83036; 85025; 86140; 86301

== ENCOUNTER 2023-05-17 10:35 | Outpatient (CLI) | payer MEDICARE, OTHER, SELFPAY ==
--- NOTE | ~2023-05-17 | US_ITS ---
EXAMINATION: US venous doppler UE RT DATE: 05/17/2023 12:42 INDICATION: Right upper limb pain. TECHNIQUE: Grayscale ultrasound images without and with compression and Doppler ultrasound images of the right upper extremity veins were obtained. COMPARISON: Chest CT 02/03/2021, 09/08/14 FINDINGS: The visualized portions of the right internal jugular vein, subclavian vein, axillary vein, brachial veins, basilic vein, cephalic vein, radial vein, and ulnar vein are patent. In the right thyroid lobe , there is a 13 mm solid, hypoechoic, wider than tall nodule with smooth margin without echogenic foc i (TI-RADS TR4), stable from 09/08/14, likely benign. IMPRESSION: 1. No deep venous thrombosis. Reviewed, dictated and finalized at location E.
== END 2023-05-17 10:36 | disposition home or self-care (01) ==
LOC: CHSIMG 10:38
PROVIDERS: PCP Internal Medicine; Visit Provider Nurse Practitioner Family
DX: M79.601 Pain in right arm (principal)
CPT/HCPCS: 93971

== ENCOUNTER 2023-06-21 12:54 | Outpatient (CLI) | payer MEDICARE, OTHER, SELFPAY ==
--- NOTE | ~2023-06-21 | US_ITS ---
EXAMINATION: US thyroid DATE: 06/21/2023 13:20 INDICATION: Thyroid nodule. TECHNIQUE: Multiple ultrasound images of the thyroid were obtained. COMPARISON: None. FINDINGS: The right thyroid lobe measures 3.2 x 1.6 x 1.6 cm. The left thyroid lobe measures 2.6 x 1.4 x 1.0 c m. In the right thyroid lobe, there is a 13 mm solid, hypoechoic, wider than tall nodule with smooth margin without echogenic foci (TI-RADS TR4). In the left thyroid lobe, there is a 12 mm solid, hypoe choic, wider than tall nodule with smooth margin without echogenic foci (TR4). In the thyroid isthmus , there is a 7 mm solid, hypoechoic, wider than tall nodule with smooth margin without echogenic foci (TR4). IMPRESSION: 1. Small thyroid nodules. Thyroid ultrasound is recommended in one year. Reviewed, dictated and finalized at location A. [employer]
== END 2023-06-21 12:55 | disposition home or self-care (01) ==
LOC: CHSIMG 12:56
PROVIDERS: PCP Internal Medicine; Visit Provider Nurse Practitioner Family
DX: E04.1 Nontoxic single thyroid nodule (principal)
CPT/HCPCS: 76536

== ENCOUNTER 2023-12-02 09:10 | Outpatient (CLI) | payer MEDICARE, SELFPAY ==
[2023-12-02 09:41] LABS: Basophils Absolute Auto 0.03 K/mm3 (0.00-0.10); Basophils Percent Auto 0.5 % (0.0-1.0); Eosinophils Absolute Auto 0.11 K/mm3 (0.02-0.50); Eosinophils Percent Auto 1.9 % (1.0-6.0); Hematocrit 48.2 % (35.0-42.0); Immature Granulocyte Absolute 0.02 K/mm3 (0.00-0.00); Immature Granulocyte Percent A 0.3 % (0.0-0.0); Lymphocytes Absolute Auto 2.48 K/mm3 (1.10-4.50); Lymphocytes Percent Auto 42.8 % (18.0-42.0); Mean Corpuscular HGB Conc 31.1 g/dL (32-36); Mean Corpuscular Hemoglobin 28.1 pg (27.0-31.0); Mean Corpuscular Volume 90.3 fL (78.0-102.0); Mean Platelet Volume 9.8 fl (9.2-11.8); Monocytes Percent Auto 6.9 % (2.0-11.0); Neutrophils Absolute Auto 2.75 K/mm3 (1.70-7.20); Neutrophils Percent Auto 47.6 % (50.0-70.0); Platelet Count Result 226 K/mm3 (150-420); Red Blood Count 5.34 M/mm3 (4.20-5.40); Red Cell Distribution Width 13.9 % (11.6-14.4); White Blood Count 5.8 K/mm3 (4.8-10.8)
[2023-12-02 09:43] LABS: Appearance Urine Clear (Clear); Bilirubin Urine Negative (Negative); Blood Urine Negative (Negative); Color Urine Light Yellow (Yellow); Glucose Urine UA Negative (Negative); Ketones Urine Negative (Negative); Leukocyte Esterase Ur Negative LEU/UL (Negative); Nitrate Urine Negative (Negative); Protein Urine Negative (Negative); Specific Grav Ur <= 1.005 (1.010-1.020); Urobilinogen Urine 0.2 mg/dL (0.2-1.0); pH Urine 6.5 (5.0-8.0)
[2023-12-02 10:03] LABS: Add Urine Microscopic? NO
[2023-12-02 10:38] LABS: Alanine Aminotransferase 22 U/L (14-59); Albumin Level 3.6 g/dL (3.4-5.0); Alkaline Phosphatase 125 U/L (46-116); Anion Gap 8 mmol/L (4-12); Aspartate Amino Transferase 16 U/L (15-37); Bilirubin,Total 0.6 mg/dL (0.00-1.00); Blood Urea Nitrogen 10 mg/dL (7-18); Calcium 9.3 mg/dL (8.5-10.1); Carbon Dioxide 31 mmol/L (21-32); Chloride 102 mmol/L (98-108); Cholesterol 133 mg/dL (0-200); Estimated Glomerular Filt Rate > 60; Glucose 147 mg/dL (70-99); HDL Direct 34 mg/dL (40-60); LDL Cholesterol Calculated 74 mg/dL (<130); Osmolality Calculated 294 mOsm/kg (285-295); Potassium 4.2 mmol/L (3.5-5.1); Sodium 141 mmol/L (136-145); Total Protein 6.7 g/dL (6.4-8.2); Triglycerides 123 mg/dL (0-150)
[2023-12-02 11:08] LABS: Hemoglobin A1C 8.4 % (<5.7)
== END 2023-12-02 09:11 | disposition home or self-care (01) ==
LOC: CHSLAB 09:12
PROVIDERS: PCP Internal Medicine; Visit Provider Internal Medicine
DX: E78.5 Hyperlipidemia, unspecified (principal); E11.9 Type 2 diabetes mellitus without complications; I25.10 Atherosclerotic heart disease of native coronary artery without angina pectoris; R53.83 Other fatigue
CPT/HCPCS: 36415; 80053; 80061; 81003; 83036; 84443; 85025

== ENCOUNTER 2024-03-03 10:20 | Outpatient (CLI) | payer MEDICARE, SELFPAY ==
[2024-03-03 10:36] LABS: Hematocrit 43.4 % (35.0-42.0); Hemoglobin 13.9 g/dL (11.7-13.8); Mean Corpuscular Hemoglobin 28.9 pg (27.0-31.0); Mean Corpuscular Volume 90.2 fL (78.0-102.0); Mean Platelet Volume 9.8 fl (9.2-11.8); Platelet Count Result 233 K/mm3 (150-420); Red Blood Count 4.81 M/mm3 (4.20-5.40); White Blood Count 6.9 K/mm3 (4.8-10.8)
[2024-03-03 11:27] LABS: Hemoglobin A1C 6.7 % (<5.7)
[2024-03-03 11:55] LABS: Alanine Aminotransferase 20 U/L (14-59); Albumin Level 3.5 g/dL (3.4-5.0); Alkaline Phosphatase 113 U/L (46-116); Anion Gap 8 mmol/L (4-12); Aspartate Amino Transferase 24 U/L (15-37); Bilirubin,Total 0.6 mg/dL (0.00-1.00); Blood Urea Nitrogen 11 mg/dL (7-18); CRP 0.7 mg/dL (0.0-0.9); Calcium 8.8 mg/dL (8.5-10.1); Carbon Dioxide 29 mmol/L (21-32); Chloride 106 mmol/L (98-108); Cholesterol 108 mg/dL (0-200); Estimated Glomerular Filt Rate > 60; Glucose 96 mg/dL (70-99); HDL Direct 35 mg/dL (40-60); LDL Cholesterol Calculated 58 mg/dL (<130); Osmolality Calculated 295 mOsm/kg (285-295); Potassium 3.6 mmol/L (3.5-5.1); Sodium 143 mmol/L (136-145); Thyroid Stimulating Hormone 1.28 uIU/mL (0.36-3.74); Total Protein 6.4 g/dL (6.4-8.2); Triglycerides 76 mg/dL (0-150)
== END 2024-03-03 10:21 | disposition home or self-care (01) ==
LOC: CHSLAB 10:23
PROVIDERS: PCP Internal Medicine; Visit Provider Internal Medicine
DX: E11.9 Type 2 diabetes mellitus without complications (principal); M06.9 Rheumatoid arthritis, unspecified
CPT/HCPCS: 36415; 80053; 80061; 83036; 84443; 85027; 86140

== ENCOUNTER 2024-04-16 15:13 | Observation (INO) | payer MEDICARE, OTHER, SELFPAY ==
[2024-04-16] VITALS (33 sets, daily range): BP systolic 142–165; BP diastolic 72–83; PULSE 52–80; RESP 14–29; TEMP 36.8–37; O2SAT 81–100
--- NOTE | ~2024-04-16 | CT_ITS ---
EXAMINATION: CTA chest PE protocol DATE: 04/16/2024 16:52 INDICATION: shortness of breath with elevated D-dimer TECHNIQUE: Computed tomography angiography (CTA) of the chest was performed with 100 mL Omnipaque-350 intravenous contrast timed to evaluate the pulmonary arteries. Coronal maximum intensity projection 3D-reconstructions were created by the technologist. The dose-length product (DLP) was 276.26 mGy-cm. Automated exposure control and iterative reconstruction technique were employed. COMPARISON: X-ray chest, same date; CTPA 02/05/2021, report only. FINDINGS: Lung parenchyma and airways: Scattered nodular opacities in the bilateral upper lobes, right middle l obe, and left lower lobe. Air cysts in the right lower lobe. Motion artifact in the lower lungs. Isidro nt airways. Mild emphysematous change. Pleura: Unremarkable. Thoracic inlet, axillae and chest wall: Unremarkable. Thoracic aorta: No significant dilation. No dissection. The right subclavian artery traverses posteri or to the esophagus. Mild arch calcification. Mediastinum: Enlarged right hilar lymph nodes. Heart and pericardium: Mild cardiomegaly. Aortic valve calcification. Coronary artery calcifications: Moderate. Upper abdomen: No significant finding. Bones: No acute osseous finding. Pulmonary arteries: Study quality: Adequate. No pulmonary emboli detected. IMPRESSION: No CT evidence of acute pulmonary embolus. No acute process detected in the chest. Persistent right hilar lymphadenopathy. Multiple pulmonary nodules, probably representing stable granulomas, however comparison studies canno t be currently accessed. Once this technical issue is resolved, an addendum will be issued. Reviewed, dictated and finalized at location K. IMPRESSION: No CT evidence of acute pulmonary embolus. No acute process detected in the chest. Persistent right hilar lymphadenopathy. Multiple pulmonary nodules, probably representing stable granulomas, however co mparison studies cannot be currently accessed. Once this technical issue is res olved, an addendum will be issued.
--- NOTE | ~2024-04-16 | XR_ITS ---
EXAMINATION: XR chest 1V portable Exam Date/Time: 04/16/2024 15:27 CDT HISTORY: Shortness of breath Comparison: 02/05/2021. RESULT: Lines, tubes, and devices: None. Lungs and pleura: Clear. Cardiomediastinal silhouette: Stable. Other: No acute osseous or upper abdominal finding. IMPRESSION: No acute cardiopulmonary process. Reviewed, dictated and finalized at location K.
--- NOTE | 2024-04-16 15:25 | ECG_ITS ---
Test Date: 2024-04-16 15:42:20 Measurements Intervals [place] Rate: 52 P: 75 WV: 167 QRS: 36 QRSD: 77 T: 44 QT: 403 QTc: 378 Interpretive Statements SINUS BRADYCARDIA BASELINE ARTIFACT- I, II, III, AVR, AVL, AVF, V1 BORDERLINE ECG No previous ECG available for comparison Electronically Signed On 04-16-2024 15:45:44 CDT by Noman Edmondson D.O.
--- NOTE | 2024-04-16 15:35 | PC.NURSE ---
covid test administered & sent to lab @ [id number]
[2024-04-16] MEDS: IPRATROPIUM 0.5 MG/ALBUTEROL SULFATE 2.5 MG AMPUL.NEB 3 ML INHALATION ×2 (15:44→22:19)
[2024-04-16 15:51] LABS: Basophils Absolute Auto 0.03 K/mm3 (0.00-0.10); Basophils Percent Auto 0.5 % (0.0-1.0); Eosinophils Absolute Auto 0.16 K/mm3 (0.02-0.50); Eosinophils Percent Auto 2.5 % (1.0-6.0); Hematocrit 46.7 % (35.0-42.0); Hemoglobin 14.5 g/dL (11.7-13.8); Immature Granulocyte Absolute 0.02 K/mm3 (0.00-0.00); Immature Granulocyte Percent A 0.3 % (0.0-0.0); Lymphocytes Absolute Auto 2.11 K/mm3 (1.10-4.50); Lymphocytes Percent Auto 33.1 % (18.0-42.0); Mean Corpuscular Hemoglobin 28.5 pg (27.0-31.0); Mean Corpuscular Volume 91.9 fL (78.0-102.0); Mean Platelet Volume 9.5 fl (9.2-11.8); Monocytes Absolute Auto 0.49 K/mm3 (0.10-0.90); Monocytes Percent Auto 7.7 % (2.0-11.0); Neutrophils Absolute Auto 3.57 K/mm3 (1.70-7.20); Neutrophils Percent Auto 55.9 % (50.0-70.0); Platelet Count Result 211 K/mm3 (150-420); Red Blood Count 5.08 M/mm3 (4.20-5.40); Red Cell Distribution Width 13.6 % (11.6-14.4); White Blood Count 6.4 K/mm3 (4.8-10.8)
[2024-04-16 16:06] LABS: Partial Thromboplastin Time 23.7 Sec (23.9-30.70); Prothrombin Time 10.8 Seconds (9.50-12.1)
[2024-04-16 16:12] LABS: Add Urine Microscopic? NO; Appearance Urine Clear (Clear); Bilirubin Urine Negative (Negative); Blood Urine Negative (Negative); Color Urine Light Yellow (Yellow); Glucose Urine UA Negative (Negative); Ketones Urine Negative (Negative); Leukocyte Esterase Ur Negative LEU/UL (Negative); Nitrate Urine Negative (Negative); Protein Urine Negative (Negative); pH Urine 6.5 (5.0-8.0)
[2024-04-16 16:12] LABS: Lactic Acid Reflex 0.8 mmol/L (0.4-2.0)
[2024-04-16 16:13] LABS: Alanine Aminotransferase 20 U/L (14-59); Albumin Level 3.3 g/dL (3.4-5.0); Alkaline Phosphatase 100 U/L (46-116); Anion Gap 5 mmol/L (4-12); Aspartate Amino Transferase 16 U/L (15-37); Bilirubin,Total 0.4 mg/dL (0.00-1.00); Blood Urea Nitrogen 13 mg/dL (7-18); Calcium 8.8 mg/dL (8.5-10.1); Carbon Dioxide 32 mmol/L (21-32); Chloride 106 mmol/L (98-108); Estimated CRCL calculation 59 ml/min; Estimated Glomerular Filt Rate > 60; Glucose 113 mg/dL (70-99); Magnesium 2.3 mg/dL (1.8-2.4); NT Pro B Type Natriuretic Pept 113 pg/mL (0-125); Osmolality Calculated 297 mOsm/kg (285-295); Potassium 3.8 mmol/L (3.5-5.1); Sodium 143 mmol/L (136-145); Troponin I 11.3 ng/L (0.00-60.4)
[2024-04-16 16:15] LABS: D Dimer 0.53 mg/L (0.19-0.50)
[2024-04-16] MEDS: SODIUM CHLORIDE 0.9% IV 1,000 ML 999 ML IV CONT (16:23)
[2024-04-16 16:27] LABS: Influenza A QL RT-PCR Negative (Negative); Influenza B QL RT-PCR Negative (Negative); RSV RNA, RT-PCR Negative (Negative); SARS-CoV-2 RNA PCR Negative (Negative)
--- NOTE | 2024-04-16 16:49 | ED.SOB ---
HPI - SOB/Dyspnea General Chief Complaint: Shortness of Breath/Dyspnea Stated Complaint: shortness of breath Source: patient and family Mode of arrival: ambulatory Limitations: no limitations History of Present Illness HPI Narrative: this is a 68-year-old female with history of COPD , CAD and hyperlipidemia presents to the emergency department with 1 day history of shortness of breath nonproductive cough and initially having sats in the 80s with no fever chills no chest pain no abdominal pain no nausea vomiting. Patient is a smoker and has been having shortness of breath for the past few days. MD elicited complaint: shortness of breath and cough Pertinent past history: COPD Onset (ago): day(s) Context: smoke/fume exposure Timing: constant Severity: moderate Exacerbating factors: nothing Relieving factors: rest Known history of: COPD Related Data Home Medications Medication Instructions Recorded Confirmed albuterol sulfate 90 mcg/actuation 2 puff inhalation PRN PRN 02/05/21 02/14/21 aerosol inhaler Shortness Of Breath rosuvastatin 40 mg tablet 40 mg PO DAILY 02/05/21 02/14/21 aspirin 81 mg tablet 81 mg PO DAILY 02/14/21 02/14/21 Allergies Allergy/AdvReac Type Severity Reaction Status Date / Time cortisone AdvReac Unknown Verified 04/16/24 15:38 Review of Systems Review of Systems: All systems reviewed & are unremarkable except as noted in HPI and below PMFSH Past Medical History Medical History CAD (coronary artery disease) Hyperlipidemia PVD (peripheral vascular disease) right carotid stenosis 70% blockage Surgical History Surgical History History of appendectomy History of bilateral breast reduction surgery History of coronary artery stent placement [id number] History of hysterectomy Family History Family History Other Family history non-contributory Social History Social History Smoking packs per day: 1 Smoking cigarettes per day: 20.0 Years smoked: 50 Smoking pack-years: 50.00 Smoking status: Current every day smoker Tobacco type: cigarettes Alcohol intake: never Substance use: never Living arrangements: with family Gender identity (if verbalized by the patient): Female Sexual Orientation (if Verbalized by the Patient): Straight or Heterosexual Spiritual care concerns: No Exam Const: General: no acute distress Nutritional Appearance: well nourished Orientation/consciousness: patient oriented x3 Limitations: no limitations HENMT: Head: normal to inspection Neck: Neck: normal visual inspection Chest: Chest palpation & inspection: normal inspection of the chest Resp: Effort & Inspection: normal respiratory effort Auscultation: wheezes Cardio: Rate: regular rate Rhythm: regular rhythm GI: GI Palp: Yes Soft to palpation Auscultation: normal bowel sounds Skin: General skin exam: normal color Neuro: General: patient oriented x3 and moves all extremities Course Course Emergency Course: chest x-ray with no acute cardiopulmonary abnormalities, patient put on 4L of oxygen and satting and 96% received DuoNeb breathing treatment, D-dimer was elevated and CTA performed. Vital Signs Vital signs: Vital Signs Pulse Rate 78 04/16/24 15:18 Respiratory Rate 20 04/16/24 15:18 Pulse Oximetry 97 04/16/24 15:18 Temperature 37.0 C 04/16/24 15:20 Pulse Rate 76 04/16/24 16:48 Respiratory Rate 16 04/16/24 16:17 Blood Pressure 142/77 H 04/16/24 16:16 Pulse Oximetry 96 04/16/24 16:17 Oxygen Delivery Nasal Cannula 04/16/24 15:25 Oxygen Flow Rate 4 04/16/24 15:25 MDM - SOB/Dyspnea Lab Data 04/16/24 15:46 04/16/24 15:46 Labs: Lab Results 04/16/24 04/16/24 04/16/24 Rang
--- NOTE | 2024-04-16 18:31 | ADMGEN ---
This patient, Mahogany Ny, was admitted to 2nd Floor Room 208-1. Patient/family oriented to hospital policies and general routines including ID bracelet, bed and alarms, visiting hours, pain management, procedures, bathroom and other care routines, personal items, smoking policy, room service/diet, and visiting hours. Information on how to activate the Rapid Response Team has been discussed. Patient/Family are encouraged to report perceived risks to care and to ask questions if they do not understand what they are told or what they should do.
[2024-04-16] MEDS: levoFLOXacin 500 MG/D5W 100 ML 500 MG/100 ML BAG 100 MG IVPB (18:45)
[2024-04-16] MEDS: methylPREDNISolone SOD SUCC 40 MG VIAL IV PUSH (18:46)
[2024-04-16] MEDS: SODIUM CHLORIDE 0.9% IV 1,000 ML 100 ML IV CONT (18:46)
[2024-04-16] MEDS: NICOTINE (*PBKC) 21 MG PATCH 1 PATCH TRANSDERM (19:54)
[2024-04-17] VITALS (14 sets, daily range): BP systolic 134–142; BP diastolic 62; PULSE 56–98; RESP 16–20; TEMP 36–36.6; O2SAT 87–98
[2024-04-17] MEDS: IPRATROPIUM 0.5 MG/ALBUTEROL SULFATE 2.5 MG AMPUL.NEB 3 ML INHALATION ×3 (01:30→11:51)
[2024-04-17 07:15] LABS: Basophils Absolute Auto 0.01 K/mm3 (0.00-0.10); Basophils Percent Auto 0.2 % (0.0-1.0); Hematocrit 45.1 % (35.0-42.0); Hemoglobin 14.2 g/dL (11.7-13.8); Immature Granulocyte Absolute 0.03 K/mm3 (0.00-0.00); Immature Granulocyte Percent A 0.5 % (0.0-0.0); Lymphocytes Absolute Auto 0.93 K/mm3 (1.10-4.50); Lymphocytes Percent Auto 15.4 % (18.0-42.0); Mean Corpuscular HGB Conc 31.5 g/dL (32-36); Mean Corpuscular Hemoglobin 28.8 pg (27.0-31.0); Mean Corpuscular Volume 91.5 fL (78.0-102.0); Mean Platelet Volume 9.6 fl (9.2-11.8); Monocytes Absolute Auto 0.23 K/mm3 (0.10-0.90); Monocytes Percent Auto 3.8 % (2.0-11.0); Neutrophils Absolute Auto 4.82 K/mm3 (1.70-7.20); Neutrophils Percent Auto 80.1 % (50.0-70.0); Platelet Count Result 200 K/mm3 (150-420); Red Blood Count 4.93 M/mm3 (4.20-5.40); Red Cell Distribution Width 13.5 % (11.6-14.4)
[2024-04-17 07:35] LABS: Alanine Aminotransferase 18 U/L (14-59); Albumin Level 3.2 g/dL (3.4-5.0); Alkaline Phosphatase 107 U/L (46-116); Anion Gap 9 mmol/L (4-12); Aspartate Amino Transferase 14 U/L (15-37); Bilirubin,Total 0.4 mg/dL (0.00-1.00); Blood Urea Nitrogen 9 mg/dL (7-18); Carbon Dioxide 27 mmol/L (21-32); Chloride 105 mmol/L (98-108); Estimated CRCL calculation 63 ml/min; Estimated Glomerular Filt Rate > 60; Glucose 136 mg/dL (70-99); Osmolality Calculated 292 mOsm/kg (285-295); Potassium 3.9 mmol/L (3.5-5.1); Sodium 141 mmol/L (136-145)
[2024-04-17] MEDS: AZITHROMYCIN 250 MG TABLET 500 MG PO (09:40)
[2024-04-17] MEDS: ASPIRIN 81 MG ENTERIC TABLET PO (09:40)
[2024-04-17] MEDS: predniSONE 20 MG TABLET 40 MG PO (09:40)
[2024-04-17] MEDS: guaiFENesin 12 HR 600 MG TABCR 1200 MG PO (09:40)
[2024-04-17] MEDS: LOSARTAN POTASSIUM 25 MG TABLET PO (09:41)
[2024-04-17] MEDS: CLOPIDOGREL BISULFATE 75 MG TABLET PO (09:41)
--- NOTE | 2024-04-17 09:41 | HOMEO2EVAL ---
Evaluation was performed at [facility] Home Oxygen Evaluation RC: Home Oxygen (O2) Evaluation Start: 04/17/24 08:49 Freq: ONCE Status: Active Protocol: RPE Activity Type Activity Date Activity User E-sign Co-sign Detail Recorded Client Recorded Date Recorded By Document 04/17/24 09:15 [email or web address] 04/17/24 09:41 SJB Document 04/17/24 09:16 [email or web address] [email or web address] 04/17/24 09:41 SJB Document 04/17/24 09:18 [email or web address] 04/17/24 09:41 SJB Document 04/17/24 09:22 SJB [email or web address] 04/17/24 09:41 SJB 04/17/24 04/17/24 04/17/24 09:15 09:16 09:18 Home O2 Evaluation [Oxygen] -Test Phase Resting Exercise Exercise -Oxygen Delivery Room Air Room Air Nasal Cannula -Oxygen Flow Rate (L/min) 1 [Pulse Oximetry] -Pulse Oximetry (90-100 %) 90 87 L 87 L [Pulse Rate] -Pulse Rate (60-100 beats/min) 62 72 98 [Evaluation] -Activity Tolerance Excellent Excellent -Rating of Perceived Dyspnea (PD) +1 Mild, +1 Mild, Noticeable to Noticeable to the Participant the Participant but Not to an but Not to an Observer Observer -Rate of Perceived Exertion (PE) 9 Very light 11 Fairly light Query Text:Click the Protocol Button to View the RPE Scale [Exercise] -Ambulation Distance (feet) 120 175 -Ambulation Distance (meters) 36.57 53.33 [Comments] -Home Oxygen Evaluation Comments Will begin walk After approx After another on r/a pushing 120 ft on r/a, 175 ft on 1 lpm wheelchair. patient's sp02 , pt's Sp02 dropped to 87%. dropped to 87%. Started on 1 O2 increased lpm, Sp02 up to to 2 lpm, Sp02 93% with PLB up to 94%. also. Pt walks Will continue very quickly walk on 2 lpm. and RT encouraged her to slow her pace a bit. [Charges] -Evaluation Charges O2 Evaluation Charge 04/17/24 09:22 Home O2 Evaluation [Oxygen] -Test Phase Exercise -Oxygen Delivery Nasal Cannula -Oxygen Flow Rate (L/min) 2 [Pulse Oximetry] -Pulse Oximetry (90-100 %) 89 L [Pulse Rate] -Pulse Rate (60-100 beats/min) 90 [Evaluation] -Activity Tolerance Excellent -Rating of Perceived Dyspnea (PD) +1 Mild, Noticeable to the Participant but Not to an Observer -Rate of Perceived Exertion (PE) 11 Fairly light Query Text:Click the Protocol Button to View the RPE Scale [Exercise] -Ambulation Distance (feet) 200 -Ambulation Distance (meters) 60.95 [Comments] -Home Oxygen Evaluation Comments After a total of 495 ft, the patient finished the walk on 2 lpm with Sp02s staying between 89% and 94%. HR was between 62-98. PLB encouraged. Very loose, productive cough. [Charges] -Evaluation Charges
--- NOTE | 2024-04-17 10:33 | PM.SD2 ---
Same Day Admit/Disch: HPI History of Present Illness Chief complaint: shortness of breath Narrative: Patient was a 68-year-old female who presented to the emergency department with complaints shortness breath. Patient has a past medical history of COPD, hypertension, HLD, and current everyday smoker. patient was found to acute respiratory failure with hypoxia with oxygen saturations 80s was placed on supplemental oxygen with improvement as well as given DuoNebs and steroids. Patient was admitted to the medical for acute respiratory failure hypoxia secondary to COPD exacerbation continued with current treatment plan [facility] Past Medical History Medical History CAD (coronary artery disease) Hyperlipidemia PVD (peripheral vascular disease) right carotid stenosis 70% blockage Surgical History Surgical History History of appendectomy History of bilateral breast reduction surgery History of coronary artery stent placement 2015 History of hysterectomy Family History Family History Other Family history non-contributory Social History Social History Smoking packs per day: 1 Smoking cigarettes per day: 20.0 Years smoked: 50 Smoking pack-years: 50.00 Smoking status: Current every day smoker Tobacco type: cigarettes Alcohol intake: never Substance use: never Substance use type: does not use Do You Feel Safe in your Home?: Yes Lack of Transportation: No Lack of Food: Never True Current Housing: I Have Housing Concerned About Future Housing: No Difficulty Paying Gas/Electric Bills: No Difficulty Paying for Meds: No Currently Unemployed: No Education: Decline to Answer Difficulty w/ Childcare or Family Care: No Living arrangements: with family Gender identity (if verbalized by the patient): Female Sexual Orientation (if Verbalized by the Patient): Straight or Heterosexual Spiritual care concerns: No Same Day Admit/Disch: Med Pre-admit Medications Home Medications Medication Instructions Recorded Confirmed Type rosuvastatin 40 mg tablet 40 mg PO DAILY 02/05/21 04/16/24 History aspirin 81 mg tablet 81 mg PO DAILY 02/14/21 04/16/24 History clopidogrel 75 mg tablet 75 mg PO DAILY 04/16/24 04/16/24 History diclofenac sodium 3 % topical gel 1 applic topical BID 04/16/24 04/16/24 History hydrocodone 5 mg-acetaminophen 325 1 tablet PO Q6H PRN Pain 04/16/24 04/16/24 History mg tablet losartan 25 mg tablet 25 mg PO DAILY 04/16/24 04/16/24 History semaglutide 3 mg tablet (Rybelsus) 3 mg PO DAILY 04/16/24 04/16/24 History albuterol sulfate 90 mcg/actuation 2 puff inhalation Q6-8H PRN 04/17/24 Rx aerosol inhaler Shortness Of Breath #8.5 grams azithromycin 250 mg tablet 250 mg PO DAILY #4 tabs 04/17/24 Rx (Zithromax) guaifenesin 600 mg tablet, 1,200 mg PO Q12HR #14 tabs 04/17/24 Rx extended release 12 hr (Mucus Relief ER) ipratropium 0.5 mg-albuterol 3 mg 3 ml inhalation Q6HRT #90 mL 04/17/24 Rx (2.5 mg base)/3 mL nebulization soln prednisone 20 mg tablet 40 mg PO DAILY@0800 #4 tabs 04/17/24 Rx Review of Systems Review of Systems All systems reviewed & are unremarkable except as noted in HPI and below Exam Narrative: Physical Exam: -GENERAL: Alert and oriented x 3. No acute distress. Well-nourished. -HEENT: Moist mucous membranes. -LUNGS: Wheezing to auscultation bilaterally. No accessory muscle use. -CARDIOVASCULAR: Regular rate and rhythm. No murmur. No JVD. S1-S2 -ABDOMEN: Soft, non-tender and non-distended. -EXTREMITIES: No edema. Non-tender -SKIN: No rashes or lesions. Skin warm, dry. -NEUROLOGIC: No focal neurological deficits. -PSYCHIATRIC: Appropriate mood and affect. Good judgement and insight
--- NOTE | 2024-04-17 14:40 | PC.NURSE ---
Pt educated on importance of not smoking with oxygen. Discharge instructions reviewed with patient and her spouse. All questions answered. Pt stated she did not have a nebulizer machine at home, so she was instructed on how to obtain one from [facility] for $30. Pt stated she would probably be smoking on the way home. Pt was transported via wheelchair and assisted into private vehicle. Hospital oxygen was removed from patient and patient was again instructed to not smoke with oxygen in place or nearby.
--- NOTE | 2024-04-20 09:41 | PC.NURSE ---
discharge call back attempted, no answer
--- NOTE | 2024-04-24 08:35 | PC.NURSE ---
Discharge call back completed, doing well, oxygen was delivered, no problems, no questions regarding dc instructions
== END 2024-04-17 14:40 | disposition home or self-care (01) ==
LOC: CHSED 17:30 → CHS2ND 17:56
PROVIDERS: Admitting Provider Internal Medicine; Emergency Provider Emergency Medicine; PCP Internal Medicine; Visit Provider Internal Medicine
DX: J96.01 Acute respiratory failure with hypoxia (principal); J44.1 Chronic obstructive pulmonary disease with (acute) exacerbation; R19.8 Other specified symptoms and signs involving the digestive system and abdomen; I25.10 Atherosclerotic heart disease of native coronary artery without angina pectoris; E78.5 Hyperlipidemia, unspecified; I10 Essential (primary) hypertension; I73.9 Peripheral vascular disease, unspecified; Z79.51 Long term (current) use of inhaled steroids; Z79.82 Long term (current) use of aspirin; Z95.5 Presence of coronary angioplasty implant and graft; F17.210 Nicotine dependence, cigarettes, uncomplicated; Z20.822 Contact with and (suspected) exposure to COVID-19
CPT/HCPCS: 36415; 71045; 71275; 80053; 81003; 83605; 83735; 83880; 84484; 85025; 85380; 85610; 85730; 87040; 87637; 93005; 94618; 94640; 96361; 96365; 96366; 99285; A9270; G0378; J1956; J2919; J7030; J7512; Q9967

== ENCOUNTER 2024-04-30 08:54 | Outpatient (CLI) | payer MEDICARE, OTHER, SELFPAY ==
--- NOTE | ~2024-04-30 | XR_ITS ---
Clinical Indication: COPD PA and lateral views of the chest: Comparison: 04/16/2024 Findings: The lungs are clear, without evidence of focal consolidation or pleural effusion. Cardiome diastinal silhouette is within normal limits. Bones and soft tissues are unremarkable. Impression: Normal chest. Reviewed, dictated and finalized at location . Impression: Normal chest.
[2024-04-30 09:15] LABS: Basophils Absolute Auto 0.05 K/mm3 (0.00-0.10); Basophils Percent Auto 0.6 % (0.0-1.0); Eosinophils Percent Auto 3.8 % (1.0-6.0); Hematocrit 46.1 % (35.0-42.0); Hemoglobin 14.5 g/dL (11.7-13.8); Immature Granulocyte Absolute 0.02 K/mm3 (0.00-0.00); Immature Granulocyte Percent A 0.3 % (0.0-0.0); Lymphocytes Absolute Auto 2.79 K/mm3 (1.10-4.50); Lymphocytes Percent Auto 35.6 % (18.0-42.0); Mean Corpuscular HGB Conc 31.5 g/dL (32-36); Mean Corpuscular Hemoglobin 28.9 pg (27.0-31.0); Mean Corpuscular Volume 91.8 fL (78.0-102.0); Mean Platelet Volume 9.7 fl (9.2-11.8); Monocytes Absolute Auto 0.51 K/mm3 (0.10-0.90); Monocytes Percent Auto 6.5 % (2.0-11.0); Neutrophils Absolute Auto 4.17 K/mm3 (1.70-7.20); Neutrophils Percent Auto 53.2 % (50.0-70.0); Platelet Count Result 220 K/mm3 (150-420); Red Blood Count 5.02 M/mm3 (4.20-5.40); Red Cell Distribution Width 14.6 % (11.6-14.4); White Blood Count 7.8 K/mm3 (4.8-10.8)
[2024-04-30 09:44] LABS: Anion Gap 3 mmol/L (4-12); Blood Urea Nitrogen 14 mg/dL (7-18); Calcium 8.9 mg/dL (8.5-10.1); Carbon Dioxide 34 mmol/L (21-32); Chloride 106 mmol/L (98-108); Estimated Glomerular Filt Rate > 60; Glucose 109 mg/dL (70-99); Osmolality Calculated 297 mOsm/kg (285-295); Sodium 143 mmol/L (136-145)
== END 2024-04-30 08:55 | disposition home or self-care (01) ==
LOC: CHSLAB 08:56
PROVIDERS: PCP Internal Medicine; Visit Provider Nurse Practitioner Family
DX: J44.1 Chronic obstructive pulmonary disease with (acute) exacerbation (principal)
CPT/HCPCS: 36415; 71046; 80048; 85025

== ENCOUNTER 2024-12-01 10:08 | Outpatient (CLI) | payer MEDICARE, OTHER, SELFPAY ==
--- NOTE | ~2024-12-01 | XR_ITS ---
XR shoulder RT min 2V Ordering provider: Natalya Davis, DIE HARDENER History: . R SHOULDER PAIN ACUTE NKI,LROM . Comparison: None. FINDINGS: BONES: No acute fracture or dislocation. Degenerative changes in the area of the greater tuberosity. Bony fragment near to the acromioclavicular joint most likely chronic JOINT SPACES: The acromioclavicular joint is normal. The glenohumeral joint is normal. SOFT TISSUES: Normal. IMPRESSION: No acute osseous abnormality right shoulder. Degenerative changes in the area of the greater tuberosity which may indicate rotator cuff disease. Reviewed, dictated and finalized at location A. IMPRESSION: No acute osseous abnormality right shoulder. Degenerative changes in the area of the greater tuberosity which may indicate r otator cuff disease.
--- OUTSIDE RECORDS SUMMARY | 2024-12-01 10:22 | XMS_ITS | Encounter Summary ---
Author Organization [facility] Address [facility] [place] [address] Care Team Providers Care Communications Project Manager Name Role Phone Rolo Abebe MD Primary Care Provider [phone] Carlos Ravi MD Unavailable [phone] Shante Tiwari MD Unavailable [phone] Khai Hugo NP Unavailable Unavailabl e Jb Woodson MD Unavailable Romel Azul MD Unavailable [phone] Encounter Details Date Type Department Care Team (Late st Contact Info) Description 05/21/2023 Hospital Orders Only [facility] Officer Pre/Post [address] [place] [address] Carlos Ravi MD [address] [id number] Social History Tobacco Use Types Packs/Day Years Used Date Smoking Tobacco: Every Day Cigarettes 1 58.6 Started: 04/30/1966 Smokeless Tobacco: Never Alcohol Use Standard Drinks/Week Comments No 0 (1 standard drink = 0.6 oz pur e alcohol) Comments No Sex and Gender Information Value Date Recorded Sex Assigned at Not on file Legal Sex Female 1:26 AM CDT Gender Identity Not on file Sexual Orientation Not on file Occupation Industry Job Start Date Job End Date Not on file Not on file Not on file Not on file documented as of this encounter Functional Status * RETIRED Are you deaf or do you have serious difficulty hearing Answer Date of Assessment Author Status No 05/25/2021 4:00 PM CDT Activ e * RETIRED Are you blind or do you have serious difficulty seeing, even when wearing glasses? Answer Date of Assessment Author Status No 05/25/2021 4:00 PM CDT Activ e * Do you have serious difficulty walking or climbing stairs? Answer Date of Assessment Author Status No 05/25/2021 4:00 PM SUZYT Kathleen Arango RN Active * Do you have difficulty dressing or bathing? Answer Date of Assessment Author Status No 05/25/2021 4:00 PM CDT Kathleen Arango RN Active * Because of a physical, mental, or emotional condition, do you have difficulty doing errands alone such as visiting a doctor's office or shopping? Answer Date of Assessment Author Status No 05/25/2021 4:00 PM SUZYT Kathleen Arango RN Active * Calculated C-SSRS Risk Score (Lifetime/Recent) Answer Date of Assessment Author Status No Risk Indicated 05/24/2023 12:16 PM SUZYT Shanell Keen RN Active * [place] Suicide Severity Rating Scale (Screener/Recent Self-Report) Question Answer Date of Assessment Author Status 1. Wish to be (Past 1 Month) No 05/24/2023 12:16 PM Yared Middleton RN Active 2. Non-Specific Active Suicidal Thoughts (Past 1 Month) No 05/24/2023 12:16 PM Yared Middleton RN Active 6. Suicidal Behavior (Lifetime) No 05/24/2023 12:16 PM Yared Middleton RN Active documented as of this encounter Mental Status * Because of a physical, mental, or emotional condition, do you have serious difficulty concentrating, remembering, or making decisions? Answer Entry Date Author Status No 05/25/2021 4:00 PM Kathleen Mcduffie RN Active documented in this encounter Plan of Treatment Not on file documented as of this encounter Goals Goal Patient Goal Type Associated Problems Recent Progress Patient-Stated? Author Family - family caregiver with be involved in care transitions and discharge planning General No Hayde Mota RN documented as of this encounter Visit Diagnoses Not on filedocumented in this encounter Care Teams Communications Project Manager Relationship Specialty Start Date End Date Rolo Abebe MD [address] [place] [address] PCP - General INTERNAL MEDICINE 04/30/16 Carlos Ravi MD [address] [place] [address] Consulting Physician INTERVENTIONAL CARDIOLOGY 07/28/19 Shante Tiwari MD [address] [place] [phone] Consulting Physician Neurology Psychiatry 12/13/21 Khai Hugo NP [address] [place] [phone] NURSE PRACTITIONER 12/13/21 Jb Woodson MD [address] [place] [phone] Consulting Physician INTERNAL MEDICINE 12/18/22 Romel Azul MD [address] [place] [phone] INTERNAL MEDICINE 06/26/23 documented as of this encounter
--- OUTSIDE RECORDS SUMMARY | 2024-12-01 10:22 | XMS_ITS | Clinical Summary ---
Author Organization [facility] Address [facility] [place] [address] Care Team Providers Care Edge Gluer Name Role Phone Angel Luis H[place] MD Primary Care Provider [phone] Carlos Ravi MD Unavailable [phone] Shante Tiwari MD Unavailable [phone] Khai Hugo NP Unavailable UnavailJb Howard MD Unavailable Romel Azul MD Unavailable [phone] Allergies Active Allergy Reactions Criticality Noted Date Comments Diltiazem Other (see comment) 05/14/2017 swelling Ezetimibe Other (see comment) 03/29/2020 lethargic Medications aspirin 81 MG chewable tablet Chew 1 tablet (81 mg total) by mouth daily. States she doesn't take it daily 4 Active rosuvastatin (CRESTOR) 40 MG tablet Take 1 tablet (40 mg total) by mouth daily. 90 tablet 3 2 Active clopidogrel (PLAVIX) 75 MG tablet Take 1 tablet (75 mg total) by mouth daily. Active CIRCAID COMPRESSION WRAP, DME,Indications:V aricose veins with complications 1 Package by Does not apply route every 12 (twelve) hours. 30 Package 3 Active Additional Information Patient not taking.Reported on 06/29/2024 RYBELSUS 3 MG Tab Take 1 tablet by mouth daily. 4 Active Active Problems Problem Noted Date Diagnosed Date SOB (shortness of breath) 03/25/2024 Chronic venous insufficiency 06/26/2023 Lung nodule 04/03/2023 Smoker 04/03/2023 Chronic obstructive pulmonar y disease, unspecified COPD type ([facility]/HCC HHS/HCC) 04/03/2023 Primary osteoarthritis of right knee 01/14/2023 Effusion of right knee joint 01/14/2023 Trochanteric bursitis of right hip 01/14/2023 Encounter for abdominal aortic aneurysm (AAA) jamia barrientos 06/18/2022 Assessment & Plan (06/18/2022 9:04 AM SINGLE STROKE PREFORMER): Had an MRI of her abdomen 05/29/21 that showed a normal aorta without evidence of aneurysm. Based on this, there is no indication for additional screening or imaging of her abdominal aorta. Chronic right hip pain 06/18/2022 Assessment & Plan (12/18/2022 11:05 AM CDT): Hip & knee MRI on 12/25/22 at [facility] for chronic hip pain for Dr. Horta. Assessment & Plan (06/18/2022 9:38 AM SINGLE STROKE PREFORMER): She has chronic left hip pain that has become quite debilitating over the past year or so. She says she would like to be more active but her hip prevents this. She asked for a referral to an Orthopedic Surgeon in [place]. She was given the number for [facility]. Cervical radiculopathy 12/12/2021 Assessment & Plan (12/18/2022 11:06 AM CDT): She has a C-Spine/shoulder MRI scheduled for 12/28 at [facility]. She had a C-spine MRI on 11/27 at [facility]. There are reportedly no changes in the intracord lesion per her report. May also have some MS indicators. Assessment & Plan (12/13/2021 8:20 AM CDT): She has bilateral upper extremity pain and weakness associated with neck pain. This was aggravated by physical activity in physical therapy. She had a cervical spine MRI performed in September with improvement in the lesion seen in her cord at the time of her initial procedure. There is degenerative disease seen on both the originial and follow-up MRIs. She says she has seen a neurologist since her discharge but there are no notes or appointments from an [facility] neurologist. I do not see a neurology evaluation in the Care Everywhere records available to me. We will request records from Dr. Horta's office. She may need EMG/NCVs to help delineate the etiology of her symptoms. I do not feel these are related to her carotid artery pathology. Would consider either a peripheral neuropathy or cervical radiculopathy. Constipation 06/28/2021 Assessment & Plan (06/28/2021 3:46 PM SINGLE STROKE PREFORMER): She complains of constipation since discharge. She has tenderness to her right upper quadrant at times. She denies fever, chills, nausea, vomiting or hematochezia. There is no palpable mass and I was unable to elicit pain or guarding. She has been taking Dulcolax, but states that it is not working for her. She was encouraged to remain active, drink plenty of fluid, eat a diet high in fiber. [id number] laxative of choice was recommended including MiraLAX, Senokot, Colace and Metamucil. Asymptomatic carotid artery stenosis without infarction, left 05/25/2021 Overview (12/18/2022): 06/04/21 CTA: Near occlusive QUE Stenosis; L ICA <50% 06/09/21 QUE: 270/136 LICA: 166/51 06/10/21 RCEA 06/28/21 QUE: 43/10 LICA: 106/33 12/12/21 QUE: 92/ LICA: 152/33 06/18/22 QUE: 77/25 LICA: 135/21 12/18/22 QEU: 66/25 LICA: 134/34 Assessment & Plan (12/18/2022 11:14 AM CDT): She reports no symptoms of cerebrovascular disease including amaurosis fugax, dysarthria, hemiparesis or transient sensory deficits. A carotid artery duplex performed at [facility] on 12/18/22 demonstrates a peak systolic velocity in the right internal carotid artery of 66 cm/sec with an end diastolic velocity of 25 cm/sec. This equates to a Less than 70% by Consensus Criteria and and 15-49% by [facility] Criteria. The right vertebral artery patent with antegrade flow. The peak systolic velocity in the left internal carotid artery is 134 cm/sec with an end diastolic velocity of 34 cm/sec. This equates to a Less than 70% by Consensus Criteria and and 50-79% by [facility] Criteria. The left vertebral artery patent with antegrade flow. We discussed the results of the carotid duplex. She is doing well following her right carotid revascularization. We discussed optimal medical management and reviewed her current medication list. She ran out of clopidogrel and has not taken it for almost 6 mos. Will have her stay on the daily aspirin at this time. She will follow-up in 6 months with a carotid artery duplex. She was educated as to the signs and symptoms that should prompt earlier evaluation. Assessment & Plan (06/18/2022 9:26 AM SINGLE STROKE PREFORMER): She reports no symptoms of cerebrovascular disease including amaurosis fugax, dysarthria, hemiparesis or transient sensory deficits. A carotid artery duplex performed at [facility] on 06/18/22 demonstrates a peak systolic velocity in the right internal carotid artery of 77 cm/sec with an end diastolic velocity of 25 cm/sec. This equates to a Less than 70% by Consensus Criteria and and 15-49% by [facility] Criteria. The right vertebral artery patent with antegrade flow. The peak systolic velocity in the left internal carotid artery is 135 cm/sec with an end diastolic velocity of 21 cm/sec. This equates to a Less than 70% by Consensus Criteria and and 50-79% by [facility] Criteria. The left vertebral artery patent with antegrade flow. We discussed the results of the carotid duplex. She is doing well following her right endarterectomy. We discussed continuig optimal medical management and reviewed the current medication list. She stopped her plavix when the prescription ran out. Will renew this medication. Stressed the importance of staying on it. She will follow-up in 6 months with a carotid artery duplex. She was educated as to the signs and symptoms that should prompt earlier evaluation. Assessment & Plan (12/13/2021 8:37 AM CDT): She reports no symptoms of cerebrovascular disease including amaurosis fugax, dysarthria, hemiparesis or transient sensory deficits. A carotid artery duplex performed at [facility] on 12/12/21 demonstrates a peak systolic velocity in the right internal carotid artery of 92 cm/sec with an end diastolic velocity of 26 cm/sec. This equates to a Less than 70% by Consensus Criteria and and 15-49% by [facility] Criteria. The right vertebral artery patent with antegrade flow. The peak systolic velocity in the left internal carotid artery is 152 cm/sec with an end diastolic velocity of 33 cm/sec. This equates to a Less than 70% by Consensus Criteria and and 50-79% by [facility] [employer] [facility] Criteria. The left vertebral artery patent with antegrade flow. We discussed the results of the carotid duplex. We discussed optimal medical management and reviewed the current medication list. She stopped taking her clopidogrel because someone was going to give some pain medicine that interacted with that medicine, and I was almost out . We reviewed the rationale behind taking it. She then stated it upset her stomach. We reviewed taking it at night or on a full stomach. She asked if there was an alternative option. I looked into rivaroxaban at 2.5 mg daily. This is not covered by her insurance and would likely be prohibitively expensive. She said she would go back on the clopidogrel. This was reordered. She will follow-up in 6 months with a carotid artery duplex. She was educated as to the signs and symptoms that should prompt earlier evaluation. Assessment & Plan (05/30/2021 10:18 AM SINGLE STROKE PREFORMER): Less than 50% by CTA. Will obtain a baseline carotid duplex today. Assessment & Plan (05/26/2021 5:24 PM CDT): CTA 05/25/21: 50% stenosis left ICA History of right-sided carotid endarterectomy Overview (06/28/2021): 06/30/21 RCEA Assessment & Plan (06/28/2021 2:45 PM SINGLE STROKE PREFORMER): She reports no symptoms of cerebrovascular disease including amaurosis fugax, dysarthria, hemiparesis or transient sensory deficits. A carotid artery duplex performed at [facility] on 06/28/21 demonstrates a peak systolic velocity in the right internal carotid artery of 53 cm/sec with an end diastolic velocity of 21 cm/sec. This equates to a Less than 70% by Consensus Criteria and and 15-49% by [facility] Criteria. The right vertebral artery patent with antegrade flow. The peak systolic velocity in the left internal carotid artery is 106 cm/sec with an end diastolic velocity of 33 cm/sec. This equates to a Less than 70% by Consensus Criteria and and 15-49% by [facility] Criteria. The left vertebral artery patent with antegrade flow. We discussed the results of the carotid duplex. We reviewed potential interventional options including continued medical management, carotid stenting and carotid endarterectomy. We discussed optimal medical management and reviewed the current medication list. She will follow-up in 5 months with a carotid artery duplex. She was educated as to the signs and symptoms that should prompt earlier evaluation. Assessment & Plan (05/30/2021 10:18 AM SINGLE STROKE PREFORMER): We discussed options for intervention including continued medical management, carotid artery stenting and carotid endarterectomy. She does not meet CMS criteria for carotid artery stenting at this time, and it is felt that she is anatomically good candidate for stenting. I discussed with her that the lesion in her neck appears to be symptomatic with the right arm numbness. I am concerned that positioning her head for surgery may put undue stress on the lesion with potentially deleterious consequence. Dr. Walsh would like to have the carotid lesion treated prior to any intervention on her neck. Based on this, we discussed carotid endarterectomy at length. We reviewed the procedure in detail. I discussed with her that I am hesitant to proceed with endarterectomy under general anesthesia as I cannot assess the effect of her head positioning during the procedure. We will do this under a regional anesthetic with her awake so she can position her own head and we can assess the effect of positioning on her right arm during the procedure. She is hesitant but understands the need for an awake endarterectomy. We reviewed potential complications, including but not limited to bleeding, infection, nerve injury, blood pressure changes, myocardial infarction, stroke and . We discussed the anticipated post- operative recovery and follow-up. Dr. Smith's note appreciated recommending a 2 day ICU course for invasive BP monitoring with a goal BP of <140. At this time, She wishes to proceed with carotid endarterectomy at [facility] on Saturday, 31 May 2021. Will order a baseline carotid duplex today to establish a baseline for follow-up. Assessment & Plan (06/02/2021 1:52 PM SINGLE STROKE PREFORMER): R MAINTENANCE OF WAY SUPERINTENDENT by Dr. Smith on 05/26/21-demonstrated a high-grade stenosis of the right internal carotid artery at the origin with a diminutive caliber all the way distally into the intracranial circulation. His imaging also demonstrates that the patient has developed collateral flow around a longstanding lesion. She also has a large type right CHART COMPUTER that was seen on the CTA. Dr. Smith believed she needed revascularization of the lesion as she was having right eye involvement when she turnd her neck to the right side and occluded the right internal carotid artery, with secondary hypoperfusion to the right ophthalmic artery. S/p right carotid endarterectomy on 05/31/21. Neurosurgery attempted a LP on 05/31/21, this was unsuccessful. She had a successful LP on 06/01/21. She is on the general floor. She has no signs or symptoms of infection. No drainage or erythema. She denies pain or visual loss. Her right arm strength is showing improvement, she can extend arms over her head by 180 degrees. She will follow up in 1 month post RCEA with a carotid duplex prior to her appointment. Discharge teaching performed. She will continue statin therapy and DAPT. Encounter for long-term current use of medicatio n 09/03/2018 S/P drug eluting coronary stent placement 2015 Tobacco abuse 05/01/2016 Assessment & Plan (12/18/2022 11:08 AM CDT): She continues to smoke 1 ppd. Reiterated the need to stop smoking. Reviewed the pathology of inflammation related to smoking. She asked for a referral to the [place] [facility]. Assessment & Plan (06/28/2021 3:07 PM SINGLE STROKE PREFORMER): She continues to smoke, however, she expresses interest in quitting. She feels that the nicotine patches that she was on in the hospital helped and is interested in attempting those again. She is concerned about how much her insurance will pay for. I will submit a prescription and if she has difficulty affording the patch we will look for other options. Assessment & Plan (06/02/2021 1:54 PM SINGLE STROKE PREFORMER): Current smoker 1-1.5 PPD. She now states that she would like to quit smoking. We discussed cessation options. At this time she doesn't feel the need for medical assistance to quit, however, she will contact our office if she feels the need for medication. Coronary artery disease invo lving [place] coronary artery of [place] heart without angina pectoris Mixed hyperlipidemia Old myocardial infarction Varicose veins with complications Assessment & Plan (12/18/2022 11:04 AM CDT): She is not currently wearing compression stockings. She has had recurrence of the varices on her right ankle after sclerotherapy. The pain she had that prompted the intervention has resolved. Assessment & Plan (06/18/2022 9:05 AM SINGLE STROKE PREFORMER): Had sclerotherapy performed in January 2022. Since then she is doing well. She continues to wear her compression garments. Will follow this expectantly. Assessment & Plan (12/13/2021 8:22 AM CDT): She describes a hyperesthetic pain in her right ankle associated with some reticular varices. I am unclear if this is truly an atypical presentation of her venous insufficiency or related to the upper extremity neurologic complaints. I have ordered compression garments and a right standing venous reflux study. I will review the results of her non-invasive testing and contact her. We will arrange follow-up/intervention accordingly. 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 Walsh in Aug 2021. Was told the lesion is resolving and there is no indication for further follow-up or imaging. Will resolve this issue. 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 Possibly causing the numbness/weakness of the right arm as well as the dragging of her right foot that she presented with. She is S/P ) right CEA for symptomatic carotid stenosis. She underwent a LP on 06/01/21. Labs to screen for demyelinating disease and cytology were negative for malignancy. She will be following up with neurology on 06/30/21 to discuss results and plan. She continues to have weakness and numbness in her right arm, most noticeably her right hand. She has very poor eyedotter strength and is lacking adequate pincer grasp. However, she is now able to lift her right arm above her head and extend it. She has also begun to experience weakness in her left arm, not as bad as her right, but concerning nonetheless. Assessment & Plan (06/02/2021 1:48 PM SINGLE STROKE PREFORMER): Mrs. Ny has a possible mass in her cervical spinal cord. Possibly causing the numbness/weakness of the right arm as well as the dragging of her right foot that she presented with. She is S/P right CEA for symptomatic carotid stenosis. She underwent a LP on 06/01/21. Labs to screen for demyelinating disease and cytology pending. Acute ischemic stroke ([facility]) 05/25/2021 12/18/2022 Assessment & Plan (06/28/2021 3:15 PM SINGLE STROKE PREFORMER): She originally presented to the hospital with persistent right upper extremity and right lower extremity weakness and numbness that was not improving. She had difficulty with right eyedotter strength and stated that she was dragging her right foot while walking causing her to fall. 05/25/21: Head CT showed an area of encephalomalacia in the right temporo-occipital region, no IV TPA due to being out of the window. CTA head neck showed critical near occlusive stenosis of the right carotid bulb, decreased density in the right MCA branches without proximal occlusion and 50% stenosis left ICA. MRI brain showed a subacute infarct of the right occipital and right parietal lobes. She continues to have weakness on her right side with unequal hand grasps, poor pincer grasp on right side making it difficult to pull her pants up and down and to fasten them. She continues to drag her right foot with walking, however, she does not use a cane or walker. She is now able to raise her right arm above her head and extend her arm. Since discharge, she has noticed increased weakening of her left arm. She states that she was told she should undergo physical therapy upon discharge, but she received no further instructions. I will put in physical therapy orders. Family History Medical History Relation Comments Heart Attack Father Cancer Mother Relation Status Comments Father Mother Social History Tobacco Use Types Packs/Day Years Used Date Smoking Tobacco: Every Day Cigarettes 1 58.6 Started: 04/30/1966 Passive Smoke Exposure: Current Smokeless Tobacco: Never Tobacco Cessation:Ready to Q uit: Not Asked; Counseling Given: Not Answered Alcohol Use Standard Drinks/Week Comments No 0 [...] file Not on file Not on file Last Filed Vital Signs Vital Sign Reading Time Taken Comments Blood Pressure 116/70 06/29/2024 2:30 PM SINGLE STROKE PREFORMER Pulse 67 06/29/2024 2:30 PM SINGLE STROKE PREFORMER Temperature 37.1 C (98.8 F) 05/24/2023 12:15 PM CDT Respiratory Rate 16 06/29/2024 2:30 PM SINGLE STROKE PREFORMER Oxygen Saturation 98% 03/25/2024 10:04 AM CDT Inhaled Oxygen Concentration - - Weight 80.3 kg (177 lb) 06/29/2024 2:30 PM SINGLE STROKE PREFORMER Height 154.9 cm (5' 1 ) 06/29/2024 2:30 PM SINGLE STROKE PREFORMER Body Mass Index 33.44 06/29/2024 2:30 PM SINGLE STROKE PREFORMER Plan of Treatment Health Maintenance Due Date Last Done Comments ASCVD Statin 1953 Colorectal Cancer Screening Colonoscopy (10 Years) 1953 Hepatitis C 1971 DTaP, Tdap and Td Vaccines (1 - Tdap) 1972 Pneumococcal Vaccine: 50+ Years (1 of 2 - PCV) 1972 Mammogram Screening 1993 Zoster Vaccines (1 of 2) 2003 RSV Immunization or 60+ Years (1 - Risk 60-74 years 1-dose series) 2013 Annual Medicare Wellness Visit 2018 Dexa Scan (General) 2018 ASCVD LDL 03/11/2024 03/11/2023, 11/19, 06/18/2022, Additional history exists COVID-19 Vaccine ( season) 2024 PHQ-2 (Physician [place]) 07/22/2024 Lung Cancer Screening 06/26/2025 06/26/2024 , 05/09/2023, 05/28/2021, Additional history exists AAA SCREENING Completed 05/28/2021, 01/2021, 01/11/2016, Additional history exists Meningococcal B Vaccine Aged Out No l onger eligible based on patient's age to complete this topic Meningococcal Vaccine Aged Out No christine trevin eligible based on patient's age to complete this topic RSV Immunizations Under 20 Months Aged Out No longer eligible based on patient's age to complete this topic Goals Goal Patient Goal Type Associated Problems Recent Progress Patient-Stated? Author Family - family caregiver with be involved in care transitions and discharge planning General No Hayde Mota, RN Medical Devices Implanted Type Area Dragger Device Identifier Shelf Expiration Date Model / Serial / Lot Patch Ginette. Vasc. Vascu-Guard 0.8cm X 8cm - [id number] Implanted:Qty: 1 on 05/31/2021 by Kaia Mccormick MD at [facility] Mesh Right: Neck [employer] [id number] 11/30/2025 [id number] / / [id number] Description:Inventory notifi ed to reorder Procedures Procedure Name Priority Date/Time Associated Diagnosis Comments CT LUNG SCREENING Routine 06/26/2024 10: 56 AM SINGLE STROKE PREFORMER H/O nicotine dependence LIPID PANEL Routine 03/11/2023 CT CHEST+ABD+PEL W CON Today 05/28/2021 1:10 AM CDT from Last 3 Months or Most Recently Relevant to Health Maintenance Results * CT LUNG SCREENING (06/26/2024 10:56 AM SINGLE STROKE PREFORMER) Anatomical Region Laterality Modality Chest Computed Tomogra phy 07/03/2024 1:21 PM SINGLE STROKE PREFORMER Narrative 07/03/2024 1:28 PM SINGLE STROKE PREFORMER [facility] [address] [place] [address] EXAM: LUNG SCREENING LOW-DOSE CT THORAX WITHOUT CONTRAST DATE: 06/26/2024. HISTORY: Asymptomatic patient with history of smoking meeting CMS high-risk criteria for lung screening. * 68 years old * 51 pack years * Current smoker COMPARISON: 05/09/2023. 05/28/2021 TECHNIQUE: Noncontrast, helical, low-dose CT (LDCT) chest per standard departmental protocol. A dose lowering technique was used for this procedure, which may include, but is not limited to, dose reduction technique, automated exposure control, the use of iterative reconstruction, and ALARA (As Low As Reasonably Achievable) / Image Gently techniques. FINDINGS: Lung Screening Specific (LUNG-RADS): Nodule 1: Approximately 7 mm lung nodule in the anterior segment of right upper lobe on image 57, unchanged. Nodule 2: Partially 6 mm lung nodule abutting the major fissure and mediastinum in the right upper lobe on image 49, unchanged. Nodule 3: Approximately 6 mm lung nodule, left lower lobe on image 83, unchanged. Nodule 4: Approximately 4 mm lung nodule in the left upper lobe on image 39, unchanged. Other smaller lung nodules, unchanged. Potentially Significant Incidentals (LUNG-RADS category S): None. Pulmonary Incidentals: Multiple centrilobular nodules in the mid to upper lung zones, likely respiratory bronchiolitis. Emphysema. Other Incidentals: Coronary artery disease. Atherosclerotic aortic arch. 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 Spondylosis. Degenerative aortic valve calcifications IMPRESSION; 1. LUNG-RADS category 2: Negative. Lung nodule(s) with benign appearance or behavior. 2. LUNG-RADS category S: Negative, no new/unknown potentially significant incidental findings requiring urgent additional evaluation. 3. Coronary artery disease RECOMMENDATIONS: Continued routine annual LDCT lung screening. Suggest next exam on or around June 2025. Thank you for choosing the [facility] Lung Screening Program. Ordered By: ANGEL LUIS HORTA Interpreted By: Yoan Veronica MD, 07/03/2024 1:21 PM Procedure Note Yoan Veronica MD - 07/03/2024 [facility] [address] [place] [address] EXAM: LUNG SCREENING LOW-DOSE CT THORAX WITHOUT CONTRAST DATE: 06/26/2024. HISTORY: Asymptomatic patient with history of smoking meeting CMShigh-risk criteria for lung screening. * 68 years old * 51 pack years * Current smoker COMPARISON: 05/09/2023. 05/28/2021 TECHNIQUE: Noncontrast, helical, low-dose CT (LDCT) chest per standarddepartmental protocol. A dose lowering technique was used for thisprocedure, which may include, but is not limited to, dose reductiontechnique, automated exposure control, the use of iterativereconstruction, and ALARA (As Low As Reasonably Achievable) / Image Gentlytechniques. FINDINGS: Lung Screening Specific (LUNG-RADS): Nodule 1: Approximately 7 mm lung nodule in the anterior segment of rightupper lobe on image 57, unchanged. Nodule 2: Partially 6 mm lung nodule abutting the major fissure andmediastinum in the right upper lobe on image 49, unchanged. Nodule 3: Approximately 6 mm lung nodule, left lower lobe on image 83,unchanged. Nodule 4: Approximately 4 mm lung nodule in the left upper lobe on image39, unchanged. Other smaller lung nodules, unchanged. Potentially Significant Incidentals (LUNG-RADS category S): None. Pulmonary Incidentals: Multiple centrilobular nodules in the mid to upperlung zones, likely respiratory bronchiolitis. Emphysema. Other Incidentals: Coronary artery disease. 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 Spondylosis.Degenerative aortic valve calcifications IMPRESSION; 1. LUNG-RADS category 2: Negative. Lung nodule(s) with benign appearanceor behavior. 2. LUNG-RADS category S: Negative, no new/unknown potentially significantincidental findings requiring urgent additional evaluation. 3. Coronary artery disease RECOMMENDATIONS: Continued routine annual LDCT lung screening. Suggestnext exam on or around June 2025. Thank you for choosing the [facility]ening[facility]. Ordered By: ANGEL LUIS [place]ORTA Interpreted By: Yoan Veronica MD, 07/03/2024 1:21 PM Angel Luis [place] MD CT Final Result * LIPID PANEL (03/11/2023) CHOLESTEROL 137 HDL 46 TRIGLYCERIDES 51 LDL (CALCULATED) 81 03/11/2023 us Default History Genericprovider LABORATORY Final Result * CT CHEST+ABD+PEL W CON (05/28/2021 1:10 AM CDT) Anatomical Region Laterality Modality Chest, Abdomen, Pelvis Computed Tomography 05/28/2021 1:41 AM CDT Impressions 05/28/2021 2:29 AM SINGLE STROKE PREFORMER IMPRESSION: 1. Subtle mosaic perfusion of the lungs with areas of lucency; this may represent small airway disease or peripheral airway disease with air trapping. 2. There are also scattered rounded pleural-based areas of groundglass opacity in the lungs; cannot completely exclude superimposed acute viral pneumonia possible mild or early Covid 19 pneumonia. 3. 2 right and one left noncalcified pleural-based lung nodules; largest measures 8 mm 4.2017 Fleischner Society Recommendations for Pulmonary Nodules 6mm to 8mm (100-250mm3) Solid Nodules Solitary, low risk patient: CT in 6 to 12 months, then consider CT in 18 to 24 months. Solitary, high risk patient: CT in 6 to 12 months, then obtain CT in 18 to 24 months. Multiple, low risk patient: CT in 3 to 6 months, then consider CT in 18 to 24 months. Multiple, high risk patient: CT in 3 to 6 months, then obtain CT in 18 to [address] evidence of bony metastatic disease 6. Mild fusiform aneurysmal dilatation of the immediate infrarenal aorta measuring 2.5 cm in greatest diameter. No evidence of abdominal aortic dissection. ABDOMEN: Liver: Unremarkable Spleen: Linear calcification along the superior anterior margin, otherwise unremarkable. This may represent area of scarring. Adrenal glands: 6 mm nodule in the apex of the left adrenal gland isodense with the limbs may represent small adenoma. Right adrenal gland unremarkable Gallbladder: Unremarkable Pancreas: There is an ill-defined hypodense lesion in the tail of the pancreas measuring 2.5 cm in length by 1.2 cm in transverse dimension and 1 cm AP diameter. This is contiguous with the pancreatic duct in the tail and could represent IPMN; however given the findings in the cervical spine cannot completely exclude pancreatic neoplasm and further workup could begin with contrast-enhanced MRI of the abdomen and/or MRCP. Right kidney: Smooth nephrogram 4 mm hypodense cyst in the superior pole indeterminate. No right hydronephrosis or ureteric calculi. Left kidney: Not appearance of the superior and lower pole; area of previous infarction or scarring as the inferior defect has calcifications there is 5 mm exophytic cyst projecting from the superior pole. This might be also evaluated on MRI of the abdomen. No retroperitoneal lymphadenopathy. No retroperitoneal fluid or hemorrhage. GI: The stomach and small bowel are unremarkable. Normal terminal ileum. Absent appendix consistent with given history. The colon is normal in caliber and position. There is no bowel obstruction. No free air or free fluid in the abdomen or pelvis. PELVIS: Urinary bladder: Minimally filled. Normal bladder wall. Uterus and ovaries: Surgically absent. No free fluid in the posterior cul-de-sac. IMPRESSION: 1. 6 mm nodule at the apex of the left adrenal gland may represent adenoma. 2. 1.2 x 2.5 x 1.0 cm hypodense ill-defined lesion in the tail of the pancreas; IPMN versus other pancreatic lesion. 3. Bilateral renal cysts appear to be simple cysts 4. Consider further evaluation with contrast-enhanced MRI of the abdomen/MRCP which would also be beneficial for evaluating the left adrenal nodule and renal cysts.. Referred By: Interpreted By: Ana Manzano DO, 05/28/2021 1:41 AM Narrative 05/28/2021 2:29 AM SINGLE STROKE PREFORMER EXAMINATION: CHEST, ABDOMEN PELVIS CT WITH CONTRAST CLINICAL INDICATION: 65-year-old inpatient. Admitted on November 4 for stroke workup after coming to the emergency department complaining of right-sided numbness for 3 days duration and chest heaviness and shortness of breath for one day duration... 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 Request for CT of the chest abdomen and pelvis to look for primary or metastatic disease. Abnormal findings in the upper chest on the CTA head and neck. 0. Pt states hx of breast reduction, appendix removal, tubes tied, hystorectomy. No hx of cancer. TECHNIQUE: CT of the abdomen and pelvis was acquired after intravenous administration of 100 cc of Isovue-370 into indwelling intravenous access in the left forearm without adverse contrast reaction reported. Images acquired from the lung bases to the femoral heads then reconstructed in sagittal and coronal projections. Dose lowering technique was used for this study which may include, but is not limited to, dose reduction techniques, automated exposure control, use of iterative reconstruction and ALARA (As low As Reasonably Achievable)/Image Gently techniques. COMPARISON: No previous contrast-enhanced CT chest abdomen pelvis. The unenhanced mri cervical spine 05/27/2021 Unenhanced MRI brain 05/25/2021 CTA head and neck 05/25/2021 FINDINGS: CHEST: Subtle mosaic perfusion of the lungs with random scattered areas of lucency which may represent air trapping. Scattered blebs in the right lower lobe scattered rounded areas of peripheral groundglass opacities upper and lower lobes middle lobes bilaterally.. Findings may represent peripheral airway disease or small airway disease with air trapping; cannot completely exclude early or mild Covid 19 pneumonia.. No area of consolidation. No pleural effusion. There are 2 pleural-based noncalcified nodules in the right upper lobe: the larger measures 8 mm in diameter (axial image 57) subjacent 7 mm pleural-based nodule. (Axial image 53) Pleural-based noncalcified 7 mm nodule superior segment left lower lobe (axial image 73) No mediastinal or hilar or axillary lymphadenopathy. Normal heart size. No pericardial effusion. Extensive coronary artery calcifications. Scattered calcifications of the aortic and mitral valves. VASCULAR IMAGING: Normal caliber segments of the thoracic and abdominal aorta. No evidence of aortic dissection. Redemonstration a variant right subclavian artery origin. Conjoined origin brachiocephalic trunk and left common carotid artery. A variant right subclavian artery originates distal to the bovine vessels and distal to the left subclavian artery looping back to reach the right side between the esophagus and trachea. Moderate calcific atherosclerosis of the infrarenal aorta with small fusiform dilatation immediately infrarenal aorta measuring 2.5 cm in diameter. Right sided crescentic intraluminal thrombus. No displaced calcification or evidence of aortic dissection. Moderate, 40-45% narrowing of the inflow at the bifurcation due to calcific plaque. Hazy induration around the left common femoral vascular sheath may be localized inflammatory process unless there is given history of left transfemoral catheterization.. BONE WINDOW IMAGING: No pathologic bony abnormality in the thorax. No pathologic bony abnormality in the thoracolumbar spine pelvis or hips. Mid and lower thoracic bridging osteophytosis. Small disc bulge L5-S1 with mild facet hypertrophy. Procedure Note Ana Manzano MD - 05/28/2021 EXAMINATION: CHEST, ABDOMEN PELVIS CT WITH CONTRAST CLINICAL INDICATION: 65-year-old inpatient. Admitted on May 25 for stroke workup aftercoming to the emergency department complaining of right-sided numbness for3 days duration and chest heaviness and shortness of breath for one dayduration... During routine workup found to have cervical cordintramedullary lesion. Request for CT of the chest abdomen and pelvis tolook for primary or metastatic disease. Abnormal findings in the upperchest on the CTA head and neck. 0. Pt states hx of breast reduction, appendix removal, tubes tied,hystorectomy. No hx of cancer. TECHNIQUE: CT of the abdomen and pelvis was acquired after intravenous administrationof 100 cc of Isovue-370 into indwelling intravenous access in the leftforearm without adverse contrast reaction reported. Images acquired fromthe lung bases to the femoral heads then reconstructed in sagittal andcoronal projections. Dose lowering technique was used for this study which may include, but isnot limited to, dose reduction techniques, automated exposure control, useof iterative reconstruction and ALARA (As low As ReasonablyAchievable)/Image Gently techniques. COMPARISON: No previous contrast-enhanced CT chest abdomen pelvis. The unenhanced mri cervical spine 05/27/2021 Unenhanced MRI brain 05/25/2021 CTA head and neck 05/25/2021 FINDINGS: CHEST: Subtle mosaic perfusion of the lungs with random scattered areas oflucency which may represent air trapping. Scattered blebs in the rightlower lobe scattered rounded areas of peripheral groundglass opacitiesupper and lower lobes middle lobes bilaterally.. Findings may representperipheral airway disease or small airway disease with air trapping;cannot completely exclude early or mild Covid 19 pneumonia.. No area ofconsolidation. No pleural effusion. There are 2 pleural-based noncalcified nodules in the right upper lobe: the larger measures 8 mm in diameter (axial image 57) subjacent 7 mm pleural-based nodule. (Axial image 53) Pleural-based noncalcified 7 mm nodule superior segment left lower lobe(axial image 73) No mediastinal or hilar or axillary lymphadenopathy. Normal heart size. No pericardial effusion. Extensive coronary arterycalcifications. Scattered calcifications of the aortic and mitralvalves. VASCULAR IMAGING: Normal caliber segments of the thoracic and abdominal aorta. No evidenceof aortic dissection. Redemonstration a variant right subclavian arteryorigin. Conjoined origin brachiocephalic trunk and left common carotidartery. A variant right subclavian artery originates distal to the bovinevessels and distal to the left subclavian artery looping back to reach theright side between the esophagus and trachea. Moderate calcificatherosclerosis of the infrarenal aorta with small fusiform dilatationimmediately infrarenal aorta measuring 2.5 cm in diameter. Right sidedcrescentic intraluminal thrombus. No displaced calcification or evidenceof aortic dissection. Moderate, 40-45% narrowing of the inflow at thebifurcation due to calcific plaque. Hazy induration around the left common femoral vascular sheath may belocalized inflammatory process unless there is given history of lefttransfemoral catheterization.. BONE WINDOW IMAGING: No pathologic bony abnormality in the thorax. No pathologic bonyabnormality in the thoracolumbar spine pelvis or hips. Mid and lowerthoracic bridging osteophytosis. Small disc bulge L5-S1 with mild facethypertrophy. IMPRESSION: 1. Subtle mosaic perfusion of the lungs with areas of lucency; this mayrepresent small airway disease or peripheral airway disease with airtrapping. 2. There are also scattered rounded pleural-based areas of groundglassopacity in the lungs; cannot completely exclude superimposed acute viralpneumonia possible mild or early Covid 19 pneumonia. 3. 2 right and one left noncalcified pleural-based lung nodules; largestmeasures 8 mm 4.2017 Fleischner Society Recommendations for Pulmonary Nodules 6mm to 8mm(100-250mm3) Solid Nodules Solitary, low risk patient: CT in 6 to 12 months, then consider CT in 18to 24 months. Solitary, high risk patient: CT in 6 to 12 months, then obtain CT in 18 to24 months. Multiple, low risk patient: CT in 3 to 6 months, then consider CT in 18 to24 months. Multiple, high risk patient: CT in 3 to 6 months, then obtain CT in 18 to24 months. [address] evidence of bony metastatic disease 6. Mild fusiform aneurysmal dilatation of the immediate infrarenal aortameasuring 2.5 cm in greatest diameter. No evidence of abdominal aorticdissection. ABDOMEN: Liver: Unremarkable Spleen: Linear calcification along the superior anterior margin, otherwiseunremarkable. This may represent area of scarring. Adrenal glands: 6 mm nodule in the apex of the left adrenal gland isodensewith the limbs may represent small adenoma. Right adrenal glandunremarkable Gallbladder: Unremarkable Pancreas: There is an ill-defined hypodense lesion in the tail of thepancreas measuring 2.5 cm in length by 1.2 cm in transverse dimension and1 cm AP diameter. This is contiguous with the pancreatic duct in the tailand could represent IPMN; however given the findings in the cervical spinecannot completely exclude pancreatic neoplasm and further workup couldbegin with contrast-enhanced MRI of the abdomen and/or MRCP. Right kidney: Smooth nephrogram 4 mm hypodense cyst in the superior poleindeterminate. No right hydronephrosis or ureteric calculi. Left kidney: Not appearance of the superior and lower pole; area ofprevious infarction or scarring as the inferior defect has calcificationsthere is 5 mm exophytic cyst projecting from the superior pole. Thismight be also evaluated on MRI of the abdomen. No retroperitoneallymphadenopathy. No retroperitoneal fluid or hemorrhage. GI: The stomach and small bowel are unremarkable. Normal terminal ileum.Absent appendix consistent with given history. The colon is normal incaliber and position. There is no bowel obstruction. No free air or freefluid in the abdomen or pelvis. PELVIS: Urinary bladder: Minimally filled. Normal bladder wall. Uterus and ovaries: Surgically absent. No free fluid in the [id number]. IMPRESSION: 1. 6 mm nodule at the apex of the left adrenal gland may representadenoma. 2. 1.2 x 2.5 x 1.0 cm hypodense ill-defined lesion in the tail of thepancreas; IPMN versus other pancreatic lesion. 3. Bilateral renal cysts appear to be simple cysts 4. Consider further evaluation with contrast-enhanced MRI of theabdomen/MRCP which would also be beneficial for evaluating the leftadrenal nodule and renal cysts.. Referred By: Interpreted By: Ana Manzano DO, 05/28/2021 1:41 AM Noel Paul MD CT Final Result from Last 3 Months or Most Recently Relevant to Health Maintenance Insurance MEDICARE [facility] [employer] [facility] [employer] Advance Directives * Full Code (Latest Code Status on File) Date Activated Date Inactivated Comments 05/25/2021 6:40 PM 06/02/2021 4:23 PM Care Teams Edge Gluer Relationship Specialty Start Date End Date Angel Luis [place] MD [address] [place] [address] PCP - General INTERNAL MEDICINE 04/30/16 Carlos Ravi MD [address] [place] [address] Consulting Physician INTERVENTIONAL CARDIOLOGY 07/28/19 Shante Tiwari MD [address] [place] [phone] Consulting Physician Neurology Psychiatry 12/13/21 Khai Hugo NP [address] [place] [phone] NURSE PRACTITIONER 12/13/21 Jb Woodson MD [address] [place] [phone] Consulting Physician INTERNAL MEDICINE 12/18/22 Romel Azul MD [address] [place] [phone] INTERNAL MEDICINE 06/26/23
--- OUTSIDE RECORDS SUMMARY | 2024-12-01 10:22 | XMS_ITS | Encounter Summary ---
Author Organization [facility] Address [facility] [place] [address] Care Team Providers Care Java Front End Web Developer Name Role Phone Rolo Abebe MD Primary Care Provider [phone] Carlos Ravi MD Unavailable [phone] Sil Lugo Unavailable [phone] Kaia Mccormick MD Unavailable [phone] Shante Tiwari MD Unavailable [phone] Khai Hugo NP Unavailable Unavailabl e Jb Woodson MD Unavailable Romel Azul MD Unavailable [phone] Encounter Details Date Type Department Care Team (Late st Contact Info) Description 05/15/2017 Abstract [facility] [address] [place] [address] Carlos Ravi MD [address] [place] [address] [place] [id number] Social History Tobacco Use Types Packs/Day Years Used Date Smoking Tobacco: Every Day Cigarettes 1 58.6 Started: 04/30/1966 Smokeless Tobacco: Never Alcohol Use Standard Drinks/Week Comments No 0 (1 standard drink = 0.6 oz pur e alcohol) Comments Unknown Sex and Gender Information Value Date Recorded Sex Assigned at Not on file Legal Sex Female 1:26 AM CDT Gender Identity Not on file Sexual Orientation Not on file documented as of this encounter Plan of Treatment Not on file documented as of this encounter Procedures Procedure Name Priority Date/Time Associated Diagnosis Comments LIPID PANEL (OUTSIDE LAB) Routine 04/25/2017 CMP (ABSTRACTED LAB) Routine 04/25/2017 PRO-BRAIN NATRIURETIC PEPTIDE Routine 04/25/2017 CBC (OUTSIDE LAB) Routine 04/25/2017 CK (CPK) Routine 04/25/2017 documented in this encounter Results * CBC (OUTSIDE LAB) (04/25/2017) WBC 7.1 HGB 15.3 HCT 47.7 PLT 238 RBC 5.25 MCV 91 MCH 29.1 MCHC 32.1 MPV 9.9 RDW 13.6 04/25/2017 us Rolo Abebe MD LAB-OUTSIDE/ABSTRACTED Final Re sult * PRO-BRAIN NATRIURETIC PEPTIDE (04/25/2017) B TYPE NATRIURETIC PEPTIDE 14 04/25/2017 Result Charly Abebe MD LABORATORY Final Result * CMP (ABSTRACTED LAB) (04/25/2017) SODIUM S/P/B 140 POTASSIUM S/P/B 4.3 CHLORIDE S/P/B 106 CO2 29 BUN 16 CREATININE S/P/B 0.84 0.5 - 1.0 EGFR NON-AFR. AMER. 73 <=90 CALCIUM S/P/B 9.1 GLUCOSE 110 mg/dL TOTAL PROTEIN S/P/B 7.7 ALBUMIN S/P/B 3.8 3.5 - 5.0 AST 18 ALT 22 ALKALINE PHOSPHATASE S/P/B 97 BILIRUBIN TOTAL S/P/B 0.65 04/25/2017 us Rolo Abebe MD LAB-OUTSIDE/ABSTRACTED Final Re sult * LIPID PANEL (OUTSIDE LAB) (04/25/2017) CHOLESTEROL 255 TRIGLYCERIDES 122 HDL 42 LDL (CALCULATED) 189 CHOL/HDL RATIO 6.1 LDL/HDL 4.5 04/25/2017 us Rolo Abebe MD LAB-OUTSIDE/ABSTRACTED Final Re sult * CK (CPK) (04/25/2017) TOTAL CK 265 CK MB 2.60 CK-MB 1.0 TROPONIN I <0.02 04/25/2017 Rolo Abebe MD LABORATORY Final Result documented in this encounter Visit Diagnoses Not on filedocumented in this encounter Additional Health Concerns Infection Onset Date Last Indicated Resolved Time COVID-19 Rule Out 05/25/2021 05/25/2021 05/26/2021 2:40 PM CDT documented as of this encounter Care Teams Java Front End Web Developer Relationship Specialty Start Date End Date Rolo Abebe MD [address] [place] [address] PCP - General INTERNAL MEDICINE 04/30/16 Carlos Ravi MD [address] [place] [address] Consulting Physician INTERVENTIONAL CARDIOLOGY 07/28/19 Sil Lugo FNP [address] [place] [address] Nurse Practitioner Nurse Practitioner Family 06/26/21 12/17/22 Kaia Mccormick MD [address] [place] [address] Consulting Physician VASCULAR SURGERY 11/30/21 01/03/23 Shante Tiwari MD [address] [place] [phone] Consulting Physician Neurology Psychiatry 12/13/21 Khai Hugo NP [address] [place] [phone] NURSE PRACTITIONER 12/13/21 Jb Woodson MD [address] [place] [phone] Consulting Physician INTERNAL MEDICINE 12/18/22 Romel Azul MD [address] [place] [phone] INTERNAL MEDICINE 06/26/23 documented as of this encounter
--- OUTSIDE RECORDS SUMMARY | 2024-12-01 10:22 | XMS_ITS | Encounter Summary ---
Author Organization [facility] Address [facility] [place] [address] Care Team Providers Care Processing Archivist Name Role Phone Rolo Abebe MD Primary Care Provider [phone] Carlos Ravi MD Unavailable [phone] Sil Lugo Unavailable [phone] Kaia Mccormick MD Unavailable [phone] Shante Tiwari MD Unavailable [phone] Khai Hugo NP Unavailable Unavailabl e Jb Woodson MD Unavailable Romel Azul MD Unavailable [phone] Encounter Details Date Type Department Care Team (Late st Contact Info) Description 03/15/2022 [facility] [address] [place] [address] Carlos Ravi MD [address] [place] [phone] Social History Tobacco Use Types Packs/Day Years [...] file Not on file Not on file COVID-19 Exposure Response Date Recorded In the last 10 days, have ele u been in contact with someone who was confirmed or suspected to have Coronavirus/COVID-19? No / Unsure 03/02/2022 9:36 AM CDT documented as of this encounter Functional Status [...] PM CDT Kathleen Arango RN Active * Do you [...] 4:00 PM CDT Kathleen Arango RN Active documented as of this encounter Mental Status * Because of a physical, mental, or emotional condition, do you have serious difficulty concentrating, remembering, or making decisions? Answer Entry Date Author Status No 05/25/2021 4:00 PM CDT Kathleen Arango RN Active documented in this encounter Plan of Treatment Not on file documented as of this encounter Goals Goal Patient Goal Type Associated Problems Recent Progress Patient-Stated? Author Family - family caregiver with be involved in care transitions and discharge planning General No Hayde Mota RN documented as of this encounter Procedures Procedure Name Priority Date/Time Associated Diagnosis Comments CBC W/ MANUAL DIFF (OUTSIDE) Routine 03/01/2022 CBC W/ MANUAL DIFF (OUTSIDE) Routine 03/01/2022 COMPREHENSIVE METABOLIC PANEL Routine 03/01/2022 documented in this encounter Results * (ABNORMAL) CBC W/ MANUAL DIFF (OUTSIDE) (03/01/2022) WBC 7.0 3.8 - 10.8 RBC 5.27(A) 3.80 - 5.10 HGB 14.9 11.7 - 15.5 HCT 45.1(A) 35.0 - 45.0 MCV 85.6 80.0 - 100.0 MCH 28.3 27.0 - 33.0 MCHC 33.0(A) 11.0 - 15.0 RDW 13.0 11.0 - 15.0 PLT 255 140 - 400 MPV 9.9 7..5 - 12.5 NEUTROPHILS % 3,486 1,500 - 7,800 LYMPHOCYTES % 2,807 850 - 3,900 MONOCYTES % 441 200 - 950 EOSINOPHILS % 238 15 - 500 BASOPHILS % 28 0 - 200 ABS. NEUTROPHILS 49.8 ABS. LYMPHOCYTES 40.1 ABS. MONOCYTES 6.3 ABS. EOSINOPHILS 3.4 ABS. BASOPHILS 0.4 03/01/2022 [facility] LABORATORY Final Result * (ABNORMAL) CBC W/ MANUAL DIFF (OUTSIDE) (03/01/2022) WBC 7.0 3.8 - 10.8 RBC 5.27(A) 3.80 - 5.10 HGB 14.9 11.7 - 15.5 HCT 45.1(A) 35.0 - 45.0 MCV 85.6 80.0 - 100.0 MCH 28.3 27.0 - 33.0 MCHC 33.0 32.0 - 36.0 RDW 13.0 11.0 - 15.0 PLT 255 140 - 400 MPV 9.9 7.5 - 12.5 NEUTROPHILS % 3,486 1,500 - 7,800 LYMPHOCYTES % 2,807 850 - 3,900 MONOCYTES % 441 200 - 950 EOSINOPHILS % 238 15 - 500 BASOPHILS % 28 0 - 200 ABS. NEUTROPHILS 49.8 ABS. LYMPHOCYTES 40.1 ABS. MONOCYTES 6.3 ABS. EOSINOPHILS 3.4 ABS. BASOPHILS 0.4 03/01/2022 [facility] Abstract LABORATORY Final Result * (ABNORMAL) COMPREHENSIVE METABOLIC PANEL (03/01/2022) SODIUM S/P/B 139 135 - 146 POTASSIUM S/P/B 4.0 3.5 - 5.3 CO2 26 20 - 32 CHLORIDE S/P/B 103 98 - 110 GLUCOSE 100(A) 65 - 99 mg/dL CALCIUM S/P/B 97 86 - 104 BUN 10 7 - 25 CREATININE S/P/B 0.69 0.5 - 1.0 EGFR NON-AFR. AMER. 94(A) <=90 ALKALINE PHOSPHATASE S/P/B 102 37 - 153 ALT 9 6 - 29 AST 14 10 - 35 BILIRUBIN TOTAL S/P/B 0.4 0.2 - 1.2 ALBUMIN S/P/B 4.1 3.5 - 5.0 TOTAL PROTEIN S/P/B 6.9 6.1 - 8.1 03/01/2022 [facility] Abstract LABORATORY Final Result documented in this encounter Visit Diagnoses Not on filedocumented in this encounter Care Teams Processing Archivist Relationship Specialty Start Date End Date Rolo Abebe MD [address] [place] [address] PCP - General INTERNAL MEDICINE 04/30/16 Carlos Ravi MD [address] [place] [address] Consulting Physician INTERVENTIONAL CARDIOLOGY 07/28/19 Sil Lugo FNP [address] [place] [address] Nurse Practitioner Nurse Practitioner Family 06/26/21 12/17/22 Kaia Mccormick MD [address] [place] [address] Consulting Physician VASCULAR SURGERY 11/30/21 01/03/23 Shante Tiwari MD [address] [place] [phone] Consulting Physician Neurology Psychiatry 12/13/21 Khai Hugo NP [address] [place] [phone] NURSE PRACTITIONER 12/13/21 Jb Woodson MD [address] [place] [phone] Consulting Physician INTERNAL MEDICINE 12/18/22 Romel Azul MD [address] [place] [phone] INTERNAL MEDICINE 06/26/23 documented as of this encounter
--- OUTSIDE RECORDS SUMMARY | 2024-12-01 10:22 | XMS_ITS | Clinical Summary ---
Author Organization [facility] Address [address] [place] [address] Phone Care Team Providers Care Epitaxial Reactor Technician Name Role Phone Provider, None Primary Care Provider Unavailabl e Allergies No known active allergies Medications Clopidogrel Bisulfate (PLAVIX PO) Take by mouth. Active atorvastatin (LIPITOR) 40 MG Tablet Take 40 mg by mouth daily. Active aspirin EC 81 MG Tablet Delayed Response Take 81 mg by mouth daily. Active rosuvastatin (CRESTOR) 40 MG Tablet Take 40 mg by mouth daily. Active ibuprofen (MOTRIN) 200 MG Tablet Take 200 mg by mouth every 8 hours as needed. Active Active Problems No known active problems Family History Medical History Relation Name Comments Heart Attack Father Cancer Mother URETHRA Heart Attack Mother Hypertension Mother Relation Name Status Comments Father Mother Social History Tobacco Use Types Packs/Day Years Used Date Smoking Tobacco: Every Day Cigarettes Smokeless Tobacco: Never Alcohol Use Standard Drinks/Week Comments Not Currently 0 (1 standard drink = 0.6 oz pur e alcohol) Comments No Sex and Gender Information Value Date Recorded Sex Assigned at Not on file Legal Sex Female 9:33 PM CDT Gender Identity Not on file Sexual Orientation Not on file Last Filed Vital Signs Vital Sign Reading Time Taken Comments Blood Pressure 131/75 05/13/2023 9:32 AM CDT Pulse 55 05/13/2023 9:32 AM CDT Temperature 36.1 C (97 F) 05/13/2023 9:32 AM CDT Respiratory Rate 16 05/13/2023 9:32 AM CDT Oxygen Saturation 95% 05/13/2023 9:32 AM CDT Inhaled Oxygen Concentration - - Weight 89.8 kg (198 lb) 05/03/2023 3:24 PM CDT Height 154.9 cm (5' 1 ) 05/03/2023 3:24 PM CDT Body Mass Index 37.41 05/03/2023 3:24 PM CDT Plan of Treatment Health Maintenance Due Date Last Done Comments DEXA Bone Density 1955 Hepatitis C Virus (HCV) Screening 1955 Mammogram 1955 Pneumococcal Immunization (5 0+ years) (1 of 2 - PCV) 1972 Colonoscopy 1998 Colorectal Cancer Screening 1998 Cologuard 2003 Immunochemical Fecal Occult Blood 2003 Zoster Immunization (1 of 2) 2003 Respiratory Syncytial Virus (RSV) Immunization (Adult) (1 - Risk 60-74 years 1-dose series) 2013 Influenza Immunization (#1) 2024 SARS-COV-2 Immunization () 03/22/2024 11/04/2020, 10/07/2020 DTaP/Tdap/Td Immunization Discontinued 12/04/2017 TdaP Immunization Completed 12/04/2017 Hepatitis B Immunization Aged Out No longer eligible based on patient's age to complete this topic Meningococcal Immunization (ACWY) Aged Out No longer eligible based on patient's age to complete this topic Rotavirus Immunization Aged Out No lo nger eligible based on patient's age to complete this topic Medical Devices Implanted Type Area [employer] Officer Device Identifier Shelf Expiration Date Model / Serial / Lot Technis 1-Piece Iol With Simplicity Delivery System Implanted:Qty: 1 on 04/15/2023 by Denny Suarez MD at [facility] Right: Eye 10/12/2025 [id number] / [id number] / [id number] Technis 1-Piece Iol With Simplicity Delivery System Implanted:Qty: 1 on 05/13/2023 by Denny Suarez MD at [facility] Left: Eye 11/03/2024 [id number] / [id number] / [id number] Insurance MEDICARE [employer] [place] [id number] [employer] MEDICARE SUP Care Teams Epitaxial Reactor Technician Relationship Specialty Start Date End Date Provider, None [place] PCP - General 01/03/22
== END 2024-12-01 10:09 | disposition home or self-care (01) ==
LOC: CHSIMG 10:10
PROVIDERS: PCP Internal Medicine; Visit Provider Nurse Practitioner Family
DX: M25.511 Pain in right shoulder (principal)
CPT/HCPCS: 73030

== ENCOUNTER 2025-03-19 10:18 | Outpatient (CLI) | payer MEDICARE, SELFPAY ==
--- OUTSIDE RECORDS SUMMARY | 1999-07-21 19:00 | XMS_ITS | Continuity of Care Document ---
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 Name Role Phone No Information Unavailable Unavailable Medications Medication Instructions Dosage Effective Dates (start - stop) Status Comments No Drug Therapy Prescribed Advance Directives Directive Yes / No Effective Date File Name No Information Encounters Encounter Description Practice Location Reason(s) For Visit Diagnoses Date Provider Providers Copied on Encounter [facility], [address] [place] [address], [id number], [place] tel:[phone] No Information No Information Family History Family Member Type Diagnosis Age At Onset No Information Payers Payer name Insurance type Covered constitution party ID Authoriza tion(s) No Information Social History Type Description Quantity Date Captured Comments Sex Female Smoking Status No Information Chief Complaint And Reason For Visit No Information History Of Present Illness Encounter Date Complaint History Of Prese nt Illness No Information Medications Administered Medication Instructions Dosage Effective Dates (start - stop) Status Comments No Drug Therapy Prescribed Instructions Date Instruction Additional Infor mation No Information Assessments Type Assessment Date No Information
--- OUTSIDE RECORDS SUMMARY | 2025-03-19 10:26 | XMS_ITS | Clinical Summary ---
Author Organization [facility] Address [address] [place] [address] Phone Care Team Providers Care Senior Accounts Payable Specialist Name Role Phone Provider, None Primary Care [...] 3:24 PM CDT Height 154.9 cm (5' 1) 05/03/2023 3:24 PM CDT Body Mass Index 37.41 05/03/2023 3:24 PM CDT Plan of Treatment Health Maintenance Due Date Last Done Comments DEXA Bone Density 1955 Hepatitis C Virus (HCV) Screening 1955 Mammogram 1953 Pneumococcal Immunization (5 0+ years) (1 of 2 - PCV) 1972 Cologuard 1998 Colonoscopy 1998 Colorectal Cancer Screening 1998 Immunochemical Fecal Occult Blood 1998 Zoster Immunization (1 of 2) 2003 Respiratory Syncytial Virus (RSV) Immunization (Adult) (1 - Risk 60-74 years 1-dose series) 2013 SARS-COV-2 Immunization ( season) 2024 11/04/2020, 10/07/2020 Influenza Immunization (#1) 2025 DTaP/Tdap/Td Immunization Discontinued 12/04/2017 TdaP Immunization Completed 12/04/2017 Hepatitis B Immunization Aged Out No longer eligible based on patient's age to complete this topic Human Papillomavirus (HPV) Immunization Aged Out No longer eligible based on patient's age to complete this topic Meningococcal Immunization (ACWY) Aged Out No longer eligible based on patient's age to complete this topic Rotavirus Immunization Aged Out No lo nger eligible based on patient's age to complete this topic Medical Devices Implanted Type Area Form Setter Steel Forms Device Identifier Shelf Expiration Date Model / Serial / Lot Technis 1-Piece Iol With Simplicity Delivery System Implanted:Qty: 1 on 04/15/2023 by Denny Suarez MD at [facility] Right: Eye 10/12/2025 [id number] / [id number] / [id number] Technis 1-Piece Iol With Simplicity Delivery System Implanted:Qty: 1 on 05/13/2023 by Denny Suarez MD at [facility] Left: Eye 11/03/2024 [id number] / [id number] / [id number] Insurance MEDICARE [employer] SUP Care Teams Senior Accounts Payable Specialist Relationship Specialty Start Date End Date Provider, None [place] PCP - General 01/03/22
[2025-03-19 11:26] LABS: Cholesterol 133 mg/dL (0-200); HDL Direct 51 mg/dL; Triglycerides 113 mg/dL (<150)
[2025-03-19 15:47] LABS: Hemoglobin A1C 6.7 % (<5.7)
[2025-03-21 19:04] LABS: Alanine Aminotransferase 14 U/L (6-35); Albumin Level 4.4 g/dL (3.5-5.1); Alkaline Phosphatase 84 U/L (38-126); Anion Gap 9 mmol/L (4-12); Aspartate Amino Transferase 26 U/L (14-36); Bilirubin,Total 0.9 mg/dL (0.2-1.3); Blood Urea Nitrogen 12 mg/dL (7-17); Calcium 9.9 mg/dL (8.4-10.2); Carbon Dioxide 28 mmol/L (22-30); Chloride 107 mmol/L (98-107); Estimated Glomerular Filt Rate > 60; Glucose 118 mg/dL (65-110); Osmolality Calculated 298 mOsm/kg (285-295); Potassium 4.5 mmol/L (3.4-5.0); Sodium 144 mmol/L (137-145); Total Protein 7.4 g/dL (6.3-8.2)
== END 2025-03-19 10:19 | disposition home or self-care (01) ==
LOC: CHSLAB 10:21
PROVIDERS: PCP Internal Medicine
DX: E78.2 Mixed hyperlipidemia (principal); E11.9 Type 2 diabetes mellitus without complications
CPT/HCPCS: 36415; 80053; 80061; 83036